=== PATIENT | male | born 1975 | race Hispanic/Latino ===

== ENCOUNTER 2019-08-02 08:02 | Emergency (ER) | payer BC, OTHER ==
--- OUTSIDE RECORDS SUMMARY | 2019-08-02 08:04 | XMS REPORT ---
:1975 Author Organization eClinicalWorks Care Team Providers Name Role Phone Joce Joseph Provider Role Unavailable Allergies, Adverse Reactions, Alerts Substance Reaction Event Type N.K.D.A. Info Not Available Non Drug Allergy Problems Problem Type Condition Code Onset Dates Condition Status Problem Other stressful life events Z63.79 Active affecting family and household Problem Major depressive disorder, single F32.2 Active episode, severe without psychotic features Problem Nonalcoholic steatohepatitis ([place]) K75.81 Active Problem Mixed hyperlipidemia E78.2 Active Problem Erectile dysfunction, unspecified N52.9 Active erectile dysfunction type Problem Rotator cuff syndrome of left M75.102 Active shoulder Problem Adult BMI 30.0-30.9 kg/sq m Z68.30 Active Problem Attention and concentration deficit R41.840 Active Problem Type 2 diabetes mellitus with other E11.29 Active diabetic kidney complication Problem Insomnia, unspecified type G47.00 Active Assessment Rotator cuff syndrome of left M75.102 Active shoulder Problem Diabetes mellitus type 2, E11.9 Active uncontrolled, without complications Problem GERD (gastroesophageal reflux K21.9 Active disease) Assessment Left shoulder pain, unspecified M25.512 Active chronicity Problem Obesity E66.9 Active Problem Hypertension I10 Active Medications Medication Code Code Instructions Start End Status Dosage System Date Date Jardiance [facility] 64767762050 10 MG Orally February 11Oct 07, Active 1 tablet Once a day 2018 2019 Lisinopril [facility] 49543242296 10 MG Orally Active 1 tablet Once a day Lipitor ND 69182287128 20 MG Orally Active 1 tablet Once a day Sildenafil ND 62765542447 100 MG Orally Jul 09, Aug 08, Active 1 tablet Citrate Once a day 2018 2018 as needed Trazodone HCl ND 69008771789 100 MG Orally Active 1 tablet Once a day at bedtime Jentadueto ND 52502796012 2.5mg by mouth February 11Oct 07, Active 1 tablet 2.5-1000mg twice a day 2018 2019 Results No Known Results Summary Purpose eClinicalWorks Submission
[2019-08-02] MEDS ORDERED: predniSONE 20 MG TAB ONE (08:51)
[2019-08-02] MEDS ORDERED: KETOROLAC 10 MG TAB PO ONE (09:00)
[2019-08-02] MEDS ORDERED: KETOROLAC 30 MG/ML INJ ONE (09:04)
--- NOTE | 2019-08-02 09:31 | RAD REPORT ---
EXAM DESCRIPTION: RAD - Shoulder Left 2 View - 08/02/2019 8:46 am CLINICAL HISTORY: PAIN COMPARISON: No comparisons FINDINGS: Mild AC joint degenerative changes are present. No fracture or dislocation. No aggressive marrow pattern.
--- NOTE | 2019-08-02 10:40 | ER ---
Nurse's Notes [facility] Name: José Miguel Fisher Age: 44 yrs Sex: Male : 1975 Arrival Date: 08/02/2019 Time: 08:07 Bed 6 Private MD: Joseph Hobson Diagnosis: Pain in left shoulder;Acromial Clavicular degenerative changes/pain Presentation: 08/02 08:25 Presenting complaint: Patient states: left shoulder pain X 1 week, worse over 2 days, iw worse at night. 08:26 Transition of care: patient was not received from another setting of care. Onset of iw symptoms was July 28, 2019. Risk Assessment: Do you want to hurt yourself or someone else? Patient reports no desire to harm self or others. Initial Sepsis Screen: Does the patient meet any 2 criteria? No. Patient's initial sepsis screen is negative. Does the patient have a suspected source of infection? No. Patient's initial sepsis screen is negative. Care prior to arrival: None. 08:26 Method Of Arrival: Ambulatory iw 08:26 Acuity: ANA LUISA 4 iw Historical: - Allergies: 08:29 No Known Allergies; iw - Home Meds: 08:29 lisinopril 10 mg Oral tab 1 tab once daily [Active]; atorvastatin oral oral once daily iw [Active]; - PMHx: 08:29 Diabetes - IDDM; Hypertension; Hyperlipidemia; iw - PSHx: 08:29 None; iw - Immunization history:: Adult Immunizations up to date. - Social history:: Smoking status: Patient/guardian denies using tobacco. - Ebola Screening: : Patient negative for fever greater than or equal to 101.5 degrees Fahrenheit, and additional compatible Ebola Virus Disease symptoms Patient denies exposure to infectious person Patient denies travel to an Ebola-affected area in the 21 days before illness onset No symptoms or risks identified at this time. Screenin:30 Abuse screen: Denies threats or abuse. Nutritional screening: No deficits noted. aa5 Tuberculosis screening: No symptoms or risk factors identified. Fall Risk None identified. Assessment: 08:30 General: Appears uncomfortable, Behavior is calm, cooperative. Pain: Complains of pain aa5 in left shoulder Pain does not radiate. Pain currently is 7 out of 10 on a pain scale. Quality of pain is described as sharp, Is continuous, Aggravated by increased activity. Neuro: Level of Consciousness is awake, alert, obeys commands, Oriented to person, place, time, situation. Cardiovascular: Patient's skin is warm and dry. Respiratory: Airway is patent Respiratory effort is even, unlabored, Respiratory pattern is regular, symmetrical. GI: No signs and/or symptoms were reported involving the gastrointestinal system. : No signs and/or symptoms were reported regarding the genitourinary system. EENT: No signs and/or symptoms were reported regarding the EENT system. Derm: Skin is pink, warm \T\ dry. Musculoskeletal: Reports pain in left shoulder. 09:04 Reassessment: Patient is alert, oriented x 3, equal unlabored respirations, skin aa5 warm/dry/pink. 10:50 Reassessment: Patient is alert, oriented x 3, equal unlabored respirations, skin aa5 warm/dry/pink. Patient states feeling better. Vital Signs: 08:30 BP 130 / 88; Pulse 100; Resp 16; Temp 98.2; Pulse Ox 100% on R/A; Pain 7/10; iw 09:04 BP 139 / 91; Pulse 98; Resp 18 S; Pulse Ox 97% on R/A; Pain 7/10; aa5 10:50 BP 130 / 76; Pulse 94; Resp 18 S; Pulse Ox 98% on R/A; aa5 ED Course: 08:07 Patient arrived in ED. mr 08:07 Joseph Hobson DO is Private Physician. mr 08:08 Thierno Fletcher MD is Attending Physician. kdr 08:15 Rebecca Villalobos, RN is Primary Nurse. aa5 08:28 Triage completed. iw 08:30 Arm band placed on. iw 08:30 Patient has correct armband on for positive identification. Placed in gown. Bed in low aa5 position. Call light in reach. Side rails up X 1. 08:46 Shoulder Left (2 View) XRAY In Process Unspecified. EDMS 10:38 Joseph Hobson DO is Referral Physician. kdr 10:50 No provider procedures requiring assistance completed. Patient did not have IV access aa5 during this emergency room visit. Administered Medications: 08:51 Drug: predniSONE 20 mg Route: PO; aa5 10:50 Follow up: Response: No adverse reaction aa5 08:58 Not Given (Physician Discretion): TORadol 10 mg PO once iw 09:04 Drug: TORadol - Ketorolac 15 mg Route: IM; Site: left deltoid; aa5 09:30 Follow up: Response: No adverse reaction aa5 Outcome: 10:39 Discharge ordered by . kdr 10:50 Discharged to home ambulatory. aa5 10:50 Condition: improved 10:50 Discharge instructions given to patient, Instructed on discharge instructions, follow up and referral plans. medication usage, Demonstrated understanding of instructions, follow-up care, medications, Prescriptions given X 2. 10:55 Patient left the ED. aa5 Signatures: Dispatcher [employer] EDMS Thierno Fletcher MD MD [facility] Shelby Greenwood mr Marilu Terrazas RN RN Rebecca Maxwell RN RN aa5 Corrections: (The following items were deleted from the chart) 08:30 08:30 BP 13 / ???; iw iw 08:30 08:30 BP 130 / 88; Pulse 100bpm; Resp 16bpm; Pulse Ox 100% RA; Temp 98.2F; Pain 7/10; iwiw
--- NOTE | 2019-08-02 10:40 | EDPHYS ---
Physician Documentation [facility] Name: José Miguel Fisher Age: 44 yrs Sex: Male : 1975 Arrival Date: 08/02/2019 Time: 08:07 Bed 6 Private MD: Joseph Hobson ED Physician Thierno Fletcher HPI: 08/02 08:38 This 44 yrs old Male presents to ER via Ambulatory with complaints of Shoulder kdr Pain. 08:38 The patient or guardian complains of pain, that is acute. left shoulder and left kdr clavicle - AC joint. Context: The problem was sustained at an unknown site, resulted from an unknown reason, The patient reports no decreased range of motion. The patient reports no obvious deformity. Onset: The symptoms/episode began/occurred suddenly, 1 week(s) ago, Worse the last two days. Modifying factors: the symptoms are alleviated by nothing. The symptoms are aggravated by movement, rotation of arm. Associated signs and symptoms: The patient has no apparent associated signs or symptoms. Severity of symptoms: At their worst the symptoms were mild, in the emergency department the symptoms are unchanged. Treatment prior to arrival includes: over the counter medications, aspirin, NSAIDS. The patient has not experienced similar symptoms in the past. The patient has not recently seen a physician. Historical: - Allergies: 08:29 No Known Allergies; iw - Home Meds: 08:29 lisinopril 10 mg Oral tab 1 tab once daily [Active]; atorvastatin oral oral once daily iw [Active]; - PMHx: 08:29 Diabetes - IDDM; Hypertension; Hyperlipidemia; iw - PSHx: 08:29 None; iw - Immunization history:: Adult Immunizations up to date. - Social history:: Smoking status: Patient/guardian denies using tobacco. - Ebola Screening: : Patient negative for fever greater than or equal to 101.5 degrees Fahrenheit, and additional compatible Ebola Virus Disease symptoms Patient denies exposure to infectious person Patient denies travel to an Ebola-affected area in the 21 days before illness onset No symptoms or risks identified at this time. ROS: 08:38 Constitutional: Negative for fever, chills, and weight loss, Eyes: Negative for injury, kdr pain, redness, and discharge, ENT: Negative for injury, pain, and discharge, Neck: Negative for injury, pain, and swelling, Cardiovascular: Negative for chest pain, palpitations, and edema, Respiratory: Negative for shortness of breath, cough, wheezing, and pleuritic chest pain, Back: Negative for injury and pain, : Negative for injury, bleeding, discharge, and swelling. 08:38 MS/extremity: Positive for pain, of the left arm - Left AC Joint. Exam: 08:38 Constitutional: This is a well developed, well nourished patient who is awake, alert, kdr and in no acute distress. Head/Face: Normocephalic, atraumatic. 08:38 Musculoskeletal/extremity: ROM: intact in all extremities, Circulation is intact in all extremities. Sensation intact. Compartment Syndrome exam of affected extremity: Joints: the left shoulder displays Vital Signs: 08:30 BP 130 / 88; Pulse 100; Resp 16; Temp 98.2; Pulse Ox 100% on R/A; Pain 7/10; iw 09:04 BP 139 / 91; Pulse 98; Resp 18 S; Pulse Ox 97% on R/A; Pain 7/10; aa5 10:50 BP 130 / 76; Pulse 94; Resp 18 S; Pulse Ox 98% on R/A; aa5 MDM: 08:38 Data reviewed: vital signs, nurses notes, radiologic studies. Counseling: I had a kdr detailed discussion with the patient and/or guardian regarding: the historical points, exam findings, and any diagnostic results supporting the discharge/admit diagnosis, radiology results, the need for outpatient follow up. 10:39 Patient medically screened. kdr 08/02 08:34 Order name: Shoulder Left (2 View) XRAY; Complete Time: 10:37 kdr Administered Medications: 08:51 Drug: predniSONE 20 mg Route: PO; aa5 10:50 Follow up: Response: No adverse reaction aa5 08:58 Not Given (Physician Discretion): TORadol 10 mg PO once iw 09:04 Drug: TORadol - Ketorolac 15 mg Route: IM; Site: left deltoid; aa5 09:30 Follow up: Response: No adverse reaction aa5 Disposition: 08/02/19 10:39 Discharged to Home. Impression: Pain in left shoulder, Acromial Clavicular degenerative changes/pain. - Condition is Stable. - Discharge Instructions: Joint Pain, Musculoskeletal Pain, Shoulder Pain. - Prescriptions for ketorolac 10 mg Oral tablet - take 1 tablet by ORAL route every 4-6 hours As needed not to exceed 40 mg in 24hrs; 12 tablet. Prednisone 20 mg Oral Tablet - take 1 tablet by ORAL route once daily for 5 days; 5 tablet. - Medication Reconciliation Form, Thank You Letter, Prescription Opioid Use, Work release form form. - Follow up: Joseph Hobson DO; When: 2 - 3 days; Reason: If symptoms return, Further diagnostic work-up, Recheck today's complaints, Continuance of care, Re-evaluation by your physician. - Problem is an ongoing problem. - Symptoms have improved. - Notes: While taking the prednisone, watch your sugar levels more frequently Signatures: Dispatcher [employer] EDMS Thierno Fletcher MD MD kdr Marilu Terrazas RN RN iw Rebecca Villalobos RN RN aa5 Corrections: (The following items were deleted from the chart) 10:55 10:39 08/02/2019 10:39 Discharged to Home. Impression: Pain in left shoulder; Acromial aa5 Clavicular degenerative changes/pain. Condition is Stable. Forms are Medication Reconciliation Form, Thank You Letter, Antibiotic Education, Prescription Opioid Use. Follow up: Joseph Hobson; When: 2 - 3 days; Reason: If symptoms return, Further diagnostic work-up, Recheck today's complaints, Continuance of care, Re-evaluation by your physician. Problem is an ongoing problem. Symptoms have improved. kdr
[2019-08-02 12:48] VITALS: TEMP 98.2
[2019-08-02 12:49] VITALS: BP 139/91; O2SAT 97
== END 2019-08-02 10:55 | disposition home or self-care (01) ==
LOC: ER 08:02
DX: M25.512 Pain in left shoulder (principal); I10 Essential (primary) hypertension; E11.9 Type 2 diabetes mellitus without complications; E78.5 Hyperlipidemia, unspecified
CPT/HCPCS: 73030; 96372; 99283; J7512

== ENCOUNTER 2020-01-22 05:58 | Day surgery (SDC) | payer OTHER ==
--- NOTE | 2020-01-16 08:48 | RAD REPORT ---
EXAM DESCRIPTION: RAD - Chest Pa And Lat (2 Views) - 01/16/2020 8:40 am CLINICAL HISTORY: preop, left shoulder surgery, COMPARISON: Portable August 2011 TECHNIQUE: Frontal and lateral views of the chest were obtained. FINDINGS: The lungs are clear. Heart size is normal and central vasculature is within normal limit s. No pleural effusion or pneumothorax seen. No acute bony finding noted. No aortic abnormality. IMPRESSION: No acute cardiopulmonary process. No suspicious change from comparison.
[2020-01-16 09:22] LABS: Absolute Lymphocytes (CBC) 0.6 K/uL (0.7-4.9); Basophils % 0.3 % (0-1.3); Hematocrit 46.3 % (39.6-49.0); Lymphocytes % 6.9 % (15.3-44.8); MPV 10.5 fL (7.6-11.3); RBC Red Blood Cell Count 4.94 M/uL (4.33-5.43)
[2020-01-16 09:56] LABS: Protime INR 1.04
[2020-01-16 10:03] LABS: BUN Blood Urea Nitrogen 23 mg/dL (7-18); Bicarbonate 24 mmol/L (21-32); Glucose Level 128 mg/dL (74-106); Potassium 4.1 mmol/L (3.5-5.1); Sodium Level 139 mmol/L (136-145)
--- NOTE | 2020-01-17 06:26 | EKG ---
Test Date: 2020-01-16 Test Time: 07:21:35 Bedspread Cutter Hand: LEO MEASUREMENT RESULTS: Intervals: Rate: 65 [place]: 138 QRSD: 78 QT: 388 QTc: 403 [place]: P: 57 [place]: 138 QRS: 64 T: 61 INTERPRETIVE STATEMENTS: Normal sinus rhythm Normal ECG Compared to ECG 09/22/2011 07:51:38 No significant changes Electronically Signed On 01-17-20 06:24:10 CDT by Dev Brar
[2020-01-22] MEDS ORDERED: NA CHLORIDE 0.9% 1,000 ML ONE (06:08)
[2020-01-22] MEDS ORDERED: CEFAZOLIN/SWI 1gm 1 GM/10 ML SYR ONE (06:08)
--- OUTSIDE RECORDS SUMMARY | 2020-01-22 06:34 | XMS REPORT ---
:1975 Author Organization eClinicalWorks Care Team Providers Name Role Phone HobsonJoseph Provider Role Unavailable Allergies, Adverse Reactions, Alerts Substance Reaction Event Type N.K.D.A. 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 Problem Insomnia, unspecified type G47.00 A ctive Problem Adult BMI 30.0-30.9 kg/sq m Z68.30 Active Problem Erectile dysfunction, unspecified N52.9 Active erectile dysfunction type Problem Type 2 diabetes mellitus with other E11.29 Active diabetic kidney complication Assessment Acute non-recurrent maxillary J01.00 Active sinusitis Assessment Upper respiratory tract infection, J06.9 Active unspecified type Problem GERD (gastroesophageal reflux K21.9 Active disease) Problem Obesity E66.9 Active Problem Hypertension I10 Active Problem Diabetes mellitus type 2, E11.9 Ac tive uncontrolled, without complications Problem Other stressful life events Z63.79 Active affecting family and household Medications Medication Code Code Instructions Start End Date Status Dosage System Date Augumet XR [facility] 99098466038 50mg/1,000mg Oct 17, Active 1 Ta blet Orally twice a 2019 day Jardiance [facility] 75250916068 10 MG Orally Active 1 tab let Once a day Trazodone HCl ND 24930371347 100 MG Orally Active 1 tablet Once a day at bedtime Lipitor ND 02973242832 20 MG Orally Active 1 table t Once a day Amoxicillin-Pot ND 09194950847 875-125 MG October Active 1 tablet Clavulanate Orally every 12 2019 hrs Lisinopril [facility] 67886531039 10 MG Orally Active 1 ta blet Once a day Results Name Result Date Reference Range Unit Abnormali ty Flag STREP A RAPID Summary Purpose eClinicalWorks Submission
--- OUTSIDE RECORDS SUMMARY | 2020-01-22 06:34 | XMS REPORT ---
:1975 Author Organization eClinicalWorks Care Team Providers Name Role Phone Joce Joseph Provider Role Unavailable Allergies, Adverse Reactions, Alerts Substance Reaction Event Type N.K.D.A. Info Not Available Non Drug Allergy Problems Problem Type Condition Code Onset Dates Condition Statu s Assessment Adult BMI 30.0-30.9 kg/sq m Z68.30 Active Assessment Insomnia, unspecified type G47.00 A ctive Assessment GERD (gastroesophageal reflux K21.9 Active disease) Problem Other stressful life events Z63.79 Active affecting family and household Assessment Mixed hyperlipidemia E78.2 Active Problem Nonalcoholic steatohepatitis ([place]) K75.81 Active Assessment Nonalcoholic steatohepatitis ([place]) K75.81 Active Problem Major depressive disorder, single F32.2 Active episode, severe without psychotic features Problem Adult BMI 30.0-30.9 kg/sq m Z68.30 Active Problem Attention and concentration deficit R41.840 Active Problem 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 Problem Rotator cuff syndrome of left M75.102 Active shoulder Assessment Proteinuria, unspecified R80.9 Act malathi Assessment Erectile dysfunction, unspecified N52.9 Active erectile dysfunction type Problem Acute stress reaction with F43.9 A ctive predominately emotional disturbance Assessment Hypertension I10 Active Problem Type 2 diabetes mellitus with other E11.29 Active diabetic kidney complication Problem Insomnia, unspecified type G47.00 A ctive Problem Mixed hyperlipidemia E78.2 Active Problem Erectile dysfunction, unspecified N52.9 Active erectile dysfunction type Assessment Major depressive disorder, single F32.2 Active episode, severe without psychotic features Assessment Type 2 diabetes mellitus with other E11.29 Active diabetic kidney complication Assessment Acute stress reaction with F43.9 A ctive predominately emotional disturbance Problem Obesity E66.9 Active Problem Hypertension I10 Active Problem Diabetes mellitus type 2, E11.9 Ac tive uncontrolled, without complications Problem GERD (gastroesophageal reflux K21.9 Active disease) Medications Medication Code Code Instructions Start End Status Dosage System Date Date Lisinopril [facility] 05647862687 10 MG Orally Active 1 ta blet Once a day Janumet XR [facility] 07090419338 50mg/1,000mg Oct 17, Active 1 Ta blet Orally twice a 2019 Lipitor [facility] 29346176250 20 MG Orally Active 1 table t Once a day Jentadueto XR [facility] 61874686237 2.5-1000 MG Active 2 tablets Orally Once a with a day meal Trazodone HCl [facility] 59180473311 100 MG Orally Active 1 tablet Once a day at bedtime Jardiance [facility] 41715895496 10 MG Orally Active 1 tab let Once a day Results No Known Results Summary Purpose eClinicalWorks Submission
--- OUTSIDE RECORDS SUMMARY | 2020-01-22 06:34 | XMS REPORT ---
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 Problem Rotator cuff syndrome of left M75.102 Active shoulder Problem Acute stress reaction with F43.9 A ctive predominately emotional disturbance Problem Type 2 diabetes mellitus with other E11.29 Active diabetic kidney complication Problem Insomnia, unspecified type G47.00 A ctive Problem Mixed hyperlipidemia E78.2 Active Problem Erectile dysfunction, unspecified N52.9 Active erectile dysfunction type Problem Obesity E66.9 Active Problem Hypertension I10 Active Problem Diabetes mellitus type 2, E11.9 Ac tive uncontrolled, without complications Problem Other stressful life events Z63.79 Active affecting family and household Problem GERD (gastroesophageal reflux K21.9 Active disease) Problem Nonalcoholic steatohepatitis ([place]) K75.81 Active Medications Medication Code System Code Instructions Start Date End Date Status Dosage Lexapro [facility] 01232678440 20 MG Orally Once December 01, Active 1 tablet a day 2019 Results No Known Results Summary Purpose eClinicalWorks Submission
--- OUTSIDE RECORDS SUMMARY | 2020-01-22 06:34 | XMS REPORT ---
:1975 Author Organization [facility] t Address [address] [place] [address] Care Team Providers Name Role Phone Unavailable Unavailable Unavailable Problems Condition Condition Condition Status Onset Resolution Last Treating Co mments Source Name Details Category Date Date Treatment Clinician Date Other Other Problem Active [facility] stressful stressful Luke s - life life Memoria events events l affecting affecting Outp ati family and family and en t household household Clin ics Major Major Problem Active [facility] depressive depressive Juani kes - disorder, disorder, Harrison nik single single l episode, episode, Outpat i severe severe ent without without Clinics psychotic psychotic features features Nonalcohol Nonalcohol Problem Active [facility] - steatohepa steatohepa Me moria titis titis l (TOWNSEND) (TOWNSEND) Outpati ent Clinics Mixed Mixed Problem Active [facility] hyperlipid hyperlipid Juani kes - emia emia Memoria l Outpati ent Clinics Erectile Erectile Problem Active [facility] dysfunctio dysfunctio [place] kes - n, n, Memoria unspecifie unspecifie l d erectile d erectile Ou tpati dysfunctio dysfunctio en t n type n type Clinics Rotator Rotator Problem Active [facility] cuff cuff [facility] - syndrome syndrome Memori a of left of left l shoulder shoulder Outpat i ent Clinics Adult BMI Adult BMI Problem Active [facility] 30.0-30.9 30.0-30.9 Luke s - kg/sq m kg/sq m Memoria l Outpati ent Clinics Attention Attention Problem Active [facility] and and [facility] - concentrat concentrat Me moria ion ion l deficit deficit Outpati ent Clinics Type 2 Type [address] [facility] diabetes diabetes [facility] - mellitus mellitus Memori a with other with other l diabetic diabetic Outpat i kidney kidney ent complicati complicati Cl inics on on Insomnia, Insomnia, Problem Active [facility] unspecifie unspecifie Juani kes - d type d type [facility]oria l [facility] Diabetes Diabetes Problem Active [facility] t mellitus mellitus [facility] - type 2, type 2, Memoria uncontroll uncontroll l ed, ed, Outpati without without ent complicati complicati Cl inics ons ons GERD GERD Problem Active [facility] (gastroeso (gastroeso Juani kes - phageal phageal Memoria reflux reflux l disease) disease) Outpat i ent Clinics Obesity Obesity Problem Active [facility] Hypertensi Hypertensi Problem Active [facility] Arthrosis Arthrosis Diagnosis Active [facility] of left of left [facility] - acromiocla acromiocla Me moria vicular vicular l joint joint [facility]ics Acute Acute Problem Active [facility] stress stress [facility] - reaction reaction Memori a with with l predominat predominat Ou tpati joe joe ent emotional emotional Clin ics disturbanc disturbanc e e Bicipital Bicipital Diagnosis Active [facility] tendinitis tendinitis Juani kes - of left of left Memoria shoulder shoulder l [facility] Pain, Pain, Diagnosis Active [facility] joint, joint, [facility] - shoulder, shoulder, Harrison nik left left l [facility] Allergies, Adverse Reactions, Alerts This patient has no known allergies or adverse reactions. Medications Ordered Filled Start Stop Current Ordering Indication Dosage Frequency Signature Comments Components Source Medication Medication Date Date Medication? Clinician (SIG) Name Name Janumet XR Janumet XR 0 2019- No Mauro [address] [facility] 2-20 05-20 Taylor [facility] - 00:00: 00:00 [facility]oria 00 :00 [facility] Trazodone Trazodone Yes Mauro [address] [facility] HCl HCl Taylor at bedtime [facility] Yes Mauro [address] [address] XR XR Taylor with a [facility] - meal [facility] l [facility] Jardiance Jardiance Yes Mauro [address] [facility] Lexapro Lexapro Yes Mauro [address] [facility] Meloxicam Meloxicam Yes Mauro not [facility] Lisinopril Lisinopril Yes Mauro 1 tablet [facility] Lipitor Lipitor Yes Mauro 1 tablet [facility] Procedures This patient has no known procedures. Encounters Start End Encounter Admission Attending Care Care Encounter Source Date/Time Date/Time Type Type Clinicians Facility Department ID 2020-01-13 2020-01-13 [facility] [id number] [facility] 09:17:00 09:17:00 t [facility] 2020-01-08 2020-01-08 [facility] [id number] [address] 16:47:00 16:47:00 t [employer] [facility] 2020-01-08 2020-01-08 [facility] [id number] [facility] 16:30:00 16:30:00 t [employer] [facility] 2020-01-06 2020-01-06 [facility] [id number] [address] 13:31:00 13:31:00 t [facility] 2020-01-06 2020-01-06 [facility] [id number] 09:00:00 09:00:00 t [facility] 2019-12-30 2019-12-30 [facility] [id number] [facility] [address] 10:30:00 10:30:00 t [facility] 2019-12-27 2019-12-27 [facility] [id number] [address] 09:32:00 09:32:00 t [facility] 2019-12-23 2019-12-23 [facility] [id number] 10:19:00 10:19:00 t [facility] ent Clinics 2019-12-04 2019-12-04 [facility] [id number] [address] 14:00:00 14:00:00 t [facility] ent Clinics 2019-12-02 2019-12-02 [facility] [id number] 09:00:00 09:00:00 t [employer] [facility] Medicine Outpati ent Clinics 2019-11-27 2019-11-27 [facility] [id number] [address] 16[facility]30:00 16:30:00 t [employer] [facility] Medicine Outpati ent Clinics 2019-11-25 2019-11-25 [facility] [id number] [address] 16:07:00 16:07:00 t Donnelly [employer] [facility] Medicine Outpati ent Clinics 2019-11-08 2019-11-08 [facility] [id number] [address] 10:45:00 10:45:00 t [employer]ly [employer] [facility] Medicine Medicine Outpati ent Clinics 2019-10-17 2019-10-17 [facility] [id number] [address] 09:18:00 09:18:00 t [employer]ly [employer] [facility] Medicine Outpati ent Clinics 2019-10-10 2019-10-10 [facility] [id number] 15:50:00 15:50:00 t [employer]ly [employer] [facility] Medicine Outpati ent Clinics 2019-10-10 2019-10-10 [facility] [id number] 15:30:00 15:30:00 t [employer]nelly [employer] [facility] Medicine Outpati ent Clinics 2019-09-26 2019-09-26 [facility] [id number] 15:15:00 15:15:00 t [facility] ent Clinics 2019-08-15 2019-08-15 Outpatient Tia [facility]ovar [id number] 15:00:00 15:00:00 t [facility] ent Clinics 2019-08-01 2019-08-01 Outpatient Tia Tovar [id number] 15:15:00 15:15:00 t [employer] [place] [employer] [facility] ent Clinics Results This patient has no known results.
--- OUTSIDE RECORDS SUMMARY | 2020-01-22 06:34 | XMS REPORT ---
:1975 Author Organization [employer] Care Team Providers Name Role Phone Mauro Taylor Provider Role Unavailable Allergies, Adverse Reactions, Alerts Substance Reaction Event Type N.K.D.A. 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 Assessment Tear of left rotator cuff, M75.102 A ctive unspecified tear extent, unspecified whether traumatic Problem Tear of left rotator cuff, M75.102 A ctive unspecified tear extent, unspecified whether traumatic Problem Erectile dysfunction, unspecified N52.9 Active erectile dysfunction type Problem Type 2 diabetes mellitus with other E11.29 Active diabetic kidney complication Problem Rotator cuff syndrome of left M75.102 Active shoulder Problem Mixed hyperlipidemia E78.2 Active Problem Diabetes mellitus type 2, E11.9 Ac tive uncontrolled, without complications Assessment 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 Assessment Pain, joint, shoulder, left M25.512 Active Problem Hypertension I10 Active Problem Other stressful life events Z63.79 Active affecting family and household Problem GERD (gastroesophageal reflux K21.9 Active disease) Problem Nonalcoholic steatohepatitis ([place]END) K75.81 Active Problem Obesity E66.9 Active Problem Major depressive disorder, single F32.2 Active episode, severe without psychotic features Medications Medication Code Code Instructions Start End Status Dosage System Date Date Trazodone HCl ND 87756388689 100 MG Orally Active 1 tablet Once a day at bedtime Jentadueto XR ND 89207176561 2.5-1000 MG Active 2 tablets Orally Once a with a day meal Meloxicam ND 88441794635 7.5 MG Orally December 03, January 02, Active 1 tablet Once a day [address] [facility] 21726277437 50mg/1,000mg Oct 17, Active 1 Ta blet Orally twice a 2019 day Lisinopril ND 09131368373 10 MG Orally Active 1 ta blet Once a day Lipitor ND 56357592430 20 MG Orally Active 1 table t Once a day Jardiance [facility] 68645819315 10 MG Orally Active 1 tab let Once a day Lexapro [facility] 58278610983 20 MG Orally December 01, Active 1 tab let Once a day 2019 Results No Known Results Summary Purpose [employer]ClinicalWorks Submission
--- OUTSIDE RECORDS SUMMARY | 2020-01-22 06:34 | XMS REPORT ---
[...] Problem Nonalcoholic steatohepatitis (TOWNSEND) K75.81 Active Medications No Known Medications Results No Known Results Summary Purpose [employer]ClinicalWorks Submission
--- OUTSIDE RECORDS SUMMARY | 2020-01-22 06:35 | XMS REPORT ---
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 Problem Tear of left rotator cuff, M75.102 A ctive unspecified tear extent, unspecified whether traumatic Problem Erectile dysfunction, unspecified N52.9 Active erectile dysfunction type Problem Type 2 diabetes mellitus with other E11.29 Active diabetic kidney complication Problem Rotator cuff syndrome of left M75.102 Active shoulder Problem Mixed hyperlipidemia E78.2 Active Problem Diabetes mellitus type 2, E11.9 Ac tive uncontrolled, without complications Problem Hypertension I10 Active Problem Other stressful life events Z63.79 Active affecting family and household Problem GERD (gastroesophageal reflux K21.9 Active disease) Problem Nonalcoholic steatohepatitis ([place]END) K75.81 Active Problem Obesity E66.9 Active Problem Major depressive disorder, single F32.2 Active episode, severe without psychotic features Medications No Known Medications Results No Known Results Summary Purpose [employer]ClinicalWorks Submission
--- OUTSIDE RECORDS SUMMARY | 2020-01-22 06:35 | XMS REPORT ---
[...] E11.9 Ac tive uncontrolled, without complications Assessment Tear of left rotator cuff, M75.102 A ctive unspecified tear extent, unspecified whether traumatic Problem Hypertension I10 Active Problem Other stressful life events Z63.79 Active affecting family and household Problem GERD (gastroesophageal reflux K21.9 Active disease) Problem Nonalcoholic steatohepatitis ([place]END) K75.81 Active Problem Obesity E66.9 Active Problem Major depressive disorder, single F32.2 Active episode, severe without psychotic features Medications No Known Medications Results No Known Results Summary Purpose eClinicalWorks Submission
--- OUTSIDE RECORDS SUMMARY | 2020-01-22 06:36 | XMS REPORT ---
:1975 Author Organization [employer] Care Team Providers Name Role Phone Taylor Mauro Provider Role Unavailable Allergies, Adverse Reactions, Alerts Substance Reaction Event Type N.K.D.A. 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 Assessment Bicipital tendinitis of left M75.22 Active shoulder Problem Tear of left rotator cuff, M75.102 [...] End Status Dosage System Date Date Lisinopril ND 03490086538 10 MG Orally Active 1 ta blet Once a day Lipitor ND 66291968380 20 MG Orally Active 1 table t Once a day Jentadueto XR [facility] 97765414175 2.5-1000 MG Active 2 tablets Orally Once a with a day meal Trazodone HCl [facility] 95022849171 100 MG Orally Active 1 tablet Once a day at bedtime Jardiance [facility] 46607458547 10 MG Orally Active 1 tab let Once a day Janumet XR [facility] 07574502308 50mg/1,000mg Oct 17, Active 1 Ta blet Orally twice a 2019 Meloxicam [facility] [address]-12 Active not defined Lexapro [facility] 09417494355 20 MG Orally Active 1 table t Once a day Results No Known Results Summary Purpose eClinicalWorks Submission
--- OUTSIDE RECORDS SUMMARY | 2020-01-22 06:36 | XMS REPORT ---
[...] E11.9 Ac tive uncontrolled, without complications Assessment COVID-19 U07.1 Active Problem Hypertension I10 Active Problem Other [...]
--- OUTSIDE RECORDS SUMMARY | 2020-01-22 06:36 | XMS REPORT ---
:1975 Author Organization [employer] Care Team Providers Name Role Phone Joce Joseph Provider Role Unavailable Allergies, Adverse Reactions, Alerts Substance Reaction Event Type N.K.D.A. Info Not Available Non Drug Allergy Problems Problem Type Condition Code Onset Dates Condition Statu s Assessment Insomnia, unspecified type G47.00 A ctive Assessment Adult BMI 30.0-30.9 kg/sq m Z68.30 Active Assessment Mixed hyperlipidemia E78.2 Active Assessment GERD (gastroesophageal reflux K21.9 Active disease) Assessment Nonalcoholic steatohepatitis ([place]) K75.81 Active Assessment Hypertension I10 Active Assessment Erectile dysfunction, unspecified N52.9 Active erectile dysfunction type Assessment Proteinuria, unspecified R80.9 Act malathi Assessment Bicipital tendinitis of left M75.22 Active shoulder Problem Nonalcoholic steatohepatitis ([place]) K75.81 Active Assessment Acute stress reaction with F43.9 A ctive predominately emotional disturbance Problem Major depressive disorder, single F32.2 Active episode, severe without psychotic features Assessment Pain, joint, shoulder, left M25.512 Active Problem Attention and concentration deficit R41.840 Active Problem Insomnia, unspecified type G47.00 A ctive Problem Adult BMI 30.0-30.9 kg/sq m Z68.30 Active Problem Acute stress reaction with F43.9 A ctive predominately emotional disturbance Problem 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 Assessment Tear of left rotator cuff, M75.102 A ctive unspecified tear extent, unspecified whether traumatic Assessment Type 2 diabetes mellitus with other E11.29 Active diabetic kidney complication Problem Tear of left rotator cuff, M75.102 A ctive unspecified tear extent, unspecified whether traumatic Assessment 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 Problem Erectile dysfunction, unspecified N52.9 Active erectile dysfunction type Problem Type 2 diabetes mellitus with other E11.29 Active diabetic kidney complication Problem Rotator cuff syndrome of left M75.102 Active shoulder Problem Mixed hyperlipidemia E78.2 Active Problem Diabetes mellitus type 2, E11.9 Ac tive uncontrolled, without complications Assessment Preop examination Z01.818 Active Assessment Major depressive disorder, single F32.2 Active episode, severe without psychotic features Problem Hypertension I10 Active Problem Other stressful life events Z63.79 Active affecting family and household Problem GERD (gastroesophageal reflux K21.9 Active disease) Problem Obesity E66.9 Active Medications Medication Code Code Instructions Start End Status Dosage System Date Date Lisinopril [facility] 92858097825 10 MG Orally Active 1 ta blet Once a day Lipitor [facility] 93078545318 20 MG Orally Active 1 table t Once a day Lexapro [facility] 91903232855 20 MG Orally Active 1 table t Once a day Janumet XR [facility] 23574103924 50mg/1,000mg Oct 17, January 14, Active 1 Ta blet Orally twice a [address] [facility] 56244174103 2.5-1000 MG Inactive 2 tablets Orally Once a with a day meal Jardiance [facility] 54460417443 10 MG Orally Active 1 tab let Once a day Trazodone HCl [facility] 26652531310 100 MG Orally Active 1 tablet Once a day at bedtime Meloxicam [facility] [address]-13 Active not defined Results No Known Results Summary Purpose eClinicalWorks Submission
[2020-01-22] MEDS ORDERED: dexAMETHasone 10 MG/ML VIAL ONE (06:41)
[2020-01-22] MEDS ORDERED: NS 0.9% VIAL 10 ML ONE (06:41)
[2020-01-22] MEDS ORDERED: LIDOCAINE 2% MPF 5 ML VIAL ONE ×2 (06:41→06:45)
[2020-01-22] MEDS ORDERED: ROPLVACAINE HCL 40 ML ONE (06:42)
[2020-01-22] MEDS ORDERED: propofoL 200 MG/20 ML VIAL IV ONE (06:44)
[2020-01-22] MEDS ORDERED: FENTANYL CITR 100 MCG/2 ML ONE (06:44)
[2020-01-22] MEDS ORDERED: MIDAZOLAM HCL 2 MG/2 ML INJ ONE (06:45)
[2020-01-22] MEDS ORDERED: ROCURONIUM 50 MG/5 ML VIAL IV ONE (06:45)
[2020-01-22] MEDS ORDERED: EPINEPHRINE/PF 1 MG/ML AMP ONE (07:13)
[2020-01-22] MEDS ORDERED: EPHEDRINE SULF 50 MG/ML VIAL ONE (07:59)
[2020-01-22] MEDS ORDERED: Ringers Lactate 1,000 ML IV ONE (08:24)
[2020-01-22] MEDS ORDERED: Phenylephrine HCl 10 MG/ML 1 ML VIAL ONE (08:29)
[2020-01-22] MEDS ORDERED: KETOROLAC 30 MG/ML INJ ONE (09:25)
--- NOTE | 2020-01-22 09:35 | P.BOP ---
Preoperative diagnosis: left shoulder rotator cuff tear, impingment syndrome, AC arthrosis Postoperative diagnosis: same, left shoulder SLAP tear Primary procedure: left shoulder arthroscopic rotator cuff repair with SLAP debridement Secondary procedure: left shoulder arthroscopic subacromial decompression Other procedure(s): left shoulder arthroscopic distal clavicle excision Estimated blood loss: <10 cc Specimen: none Findings: see dictation Anesthesia: General Complications: None Implants: 1- 4.75 mm Arthrex swivelock Fluids & blood products: per anesthesia record Transferred to: Recovery Room Condition: Good
[2020-01-22] MEDS ORDERED: ONDANSETRON 4 MG/2 ML VIAL ONE (10:04)
--- NOTE | 2020-01-22 10:31 | RAD REPORT ---
EXAM DESCRIPTION: RAD - Shoulder 1 View - 01/22/2020 10:22 am CLINICAL HISTORY: s/p L shoulder RCR, SAD, DCE Postop left shoulder COMPARISON: Shoulder Left Wo Cont dated 12/30/2019 FINDINGS: Mild arthritic changes are present. No fracture or dislocation.
[2020-01-22 10:45] VITALS: BP 115/58; TEMP 97.2; O2SAT 97
[2020-01-22] MEDS ORDERED: HYDROCODONE/APAP 7.5/325 MG TAB ONE (11:10)
--- NOTE | 2020-01-23 14:51 | OP ---
Date of Procedure: 01/22/2020 Surgeon: Mauro Taylor MD Preoperative Diagnoses: 1. Left shoulder rotator cuff tear. 2. Left shoulder impingement syndrome and left shoulder acromioclavicular joint arthrosis. Postoperative Diagnoses: 1. Left shoulder rotator cuff tear. 2. Left shoulder impingement syndrome and left shoulder acromioclavicular joint arthrosis. 3. Left shoulder adhesive capsulitis 4. Left shoulder SLAP tear Procedures: 1. Manipulation under anesthesia. 2. Left shoulder arthroscopic rotator cuff repair. 3. Left shoulder arthroscopic superior labral anterior to posterior debridement with anterior inferior capsular release. 4. Left shoulder arthroscopic subacromial decompression 5. Left shoulder arthroscopic distal clavicle excision. Anesthesia: General endotracheal. Fluids: Per Anesthesia record. Estimated Blood Loss: Less than 10 cc. Complications: None. Implants: 1 - 4.75 Arthrex Swivelock. Indication For Procedure: Martinez is a 44 year old male presenting with left shoulder rotator cuff tear, impingement syndrome, and AC joint arthrosis. I discussed with the patient at length risks and benefits associated with operative and nonoperative treatment, failed conservative treatment measures and he elected to proceed with operative treatment. Description Of Procedure: After informed consent was obtained, the patient was identified in the preoperative holding area and the left upper extremity was marked. An interscalene block to his left upper extremity was performed by Anesthesia. He was then taken back to the operating room, transferred to the operating table in supine fashion, placed under general endotracheal anesthesia. He was then placed in the beach chair position with his extremities well padded. Left upper extremity was then examined. The patient was noted to have approximately 110 degrees of forward flexion. Manipulation under anesthesia was performed. The arm was brought into forward flexion, stabilizing the scapula and there were audible pops within the shoulder. The range of motion improved to 130 degrees. The left shoulder was then prepped and draped in the usual sterile fashion. Time-out was initiated and correct patient, procedure were confirmed and identified. The patient had received his preoperative prophylactic antibiotics. In a posterior portal position, a spinal needle was introduced into the glenohumeral joint and shoulder joint was injected with 30 cc of normal saline to distend the capsule. A posterior portal was created and the arthroscope was brought into the joint via the posterior portal position. The anterior portal and cannula were placed under direct visualization. Diagnostic arthroscopy was performed. The patient was noted to have hyperemia at the base of the biceps tendon. There was no significant fraying of the biceps tendon both intraarticularly and extraarticularly. There was a type 1 SLAP lesion noted, but no instability in the labrum and it was stable to probe. An arthroscopic shaver was brought in from the anterior portal and the type 1 SLAP tear was debrided. Anterior to posterior labrum was stable to probe. No loose bodies were noted in the axillary pouch. There was hyperemia and inflammatory tissue about the anterior and inferior capsule consistent with adhesive capsulitis. Using a radiofrequency ablator, anterior and anteroinferior capsular release was performed and there was noted to be increase in space and motion of the shoulder. Undersurface of the supraspinatus was noted to have significant fraying and tearing. It was marked with a PDS suture via the lateral portal. Lateral portal was created. Arthroscope was brought into the subacromial space. Subacromial bursectomy was performed. The noted area marked by the PDS suture was identified on the bursal surface and that area of the rotator cuff was debrided. There was noted to be a small full-thickness tear of the anterior aspect of the supraspinatus. The tear was relatively small and it was fixed by placing a suture tape through the tear in an inverted horizontal mattress position using a FastPass Scorpion Suture Passer. The tear was reduced to the greater tuberosity using a 4.75 mm SwiveLock. There was overall good reduction of the rotator cuff tear. Undersurface of the acromion was then debrided using a radiofrequency ablator and acromioplasty was performed using an arthroscopic du. The distal clavicle was then identified. Soft tissue was removed in the undersurface of the distal flap using radiofrequency ablator and an arthroscopic du was brought in via the anterior portal. Distal clavicle excision of at least 6 mm was performed. The arthroscopic instruments were then removed without complications. The wound was then irrigated thoroughly with normal saline. Subcutaneous tissue was approximated using a 2-0 Vicryl. Skin and portals were approximated using a 3-0 Monocryl. Sterile dressings were applied. The patient was awakened and transferred to PACU in stable condition. Postoperative Plan: He will follow up in my clinic in 1 week for wound check. He will get physical therapy in 2 weeks postop for small rotator cuff repair protocol. CV/MODL Voice ID: [id number] Report ID: [id number]
== END 2020-01-22 11:15 | disposition home or self-care (01) ==
LOC: OR 05:58
PROVIDERS: ATTEND Orthopaedic Surgery Sports Medicine
PROC: 0RHK44Z Insertion of Internal Fixation Device into Left Shoulder Joint, Percutaneous Endoscopic Approach (ICD-10-PCS; 2020-01-22)
PROC: 0RNK4ZZ Release Left Shoulder Joint, Percutaneous Endoscopic Approach (ICD-10-PCS; 2020-01-22)
PROC: 0RBK4ZZ Excision of Left Shoulder Joint, Percutaneous Endoscopic Approach (ICD-10-PCS; 2020-01-22)
PROC: 0PBB4ZZ Excision of Left Clavicle, Percutaneous Endoscopic Approach (ICD-10-PCS; 2020-01-22)
PROC: 0RNKXZZ Release Left Shoulder Joint, External Approach (ICD-10-PCS; 2020-01-22)
PROC: 0LQ24ZZ Repair Left Shoulder Tendon, Percutaneous Endoscopic Approach (ICD-10-PCS; principal; 2020-01-22 07:30)
DX: M75.102 Unspecified rotator cuff tear or rupture of left shoulder, not specified as traumatic (principal); S43.432A Superior glenoid labrum lesion of left shoulder, initial encounter; M75.02 Adhesive capsulitis of left shoulder; M75.42 Impingement syndrome of left shoulder; M19.012 Primary osteoarthritis, left shoulder; Z11.59 Encounter for screening for other viral diseases; I10 Essential (primary) hypertension; E11.9 Type 2 diabetes mellitus without complications; K21.9 Gastro-esophageal reflux disease without esophagitis; K75.81 Nonalcoholic steatohepatitis (NASH); E66.9 Obesity, unspecified; Z68.29 Body mass index [BMI] 29.0-29.9, adult; Z83.3 Family history of diabetes mellitus; Z82.49 Family history of ischemic heart disease and other diseases of the circulatory system
CPT/HCPCS: 29827; 29826; 29822; 29824; 23700; 93005; 85025; 80048; 36415; 85610; 82947 ×2; 85730; 71046; 73020; J2704; J0171; J2370; J2250; J3010; J1100; J2795; J0690; J7120; J7030; J2405

== ENCOUNTER 2021-09-11 00:13 | Emergency (ER) | payer BC, OTHER, SELFPAY ==
--- OUTSIDE RECORDS SUMMARY | 2021-09-11 00:18 | XMS REPORT | Continuity of Care Document ---
:1975 Author Organization [facility] t Address [address] [place] [address] Care Team Providers Name Role Phone Unavailable Unavailable Unavailable Problems This patient has no known problems. Allergies, Adverse Reactions, Alerts This patient has no known allergies or adverse reactions. Medications Ordered Filled Start Stop Current Ordering Indication Dosage Frequency Signature Comments Components Source Medication Medication Date Date Medication? Clinician (SIG) Name Name Jardiance Jardiance Yes Mauro [address] [facility] Lexapro Lex[facility]ro Yes Mauro [address] [facility] Meloxicam Meloxicam Yes [facility] not [facility] Lipitor Lipitor Yes Mauro [address] [facility] Trazodone Trazodone Yes Mauro TAKE [address] [facility] HCl HCl [facility]T BY [facility] EVERY[facility] AT B[facility] Lisinopril Lisinopril Yes Mauro [address] [facility] Hydrocodone Hydrocodone Yes Mauro not [facility] -Acetaminop -Acetaminop [facility] Escitalopra Escitalopra Yes Mauro TAKE [address] [facility] m Oxalate m Oxalate [facility] TABLET [facility] Procedures This patient has no known procedures. Encounters Start End Encounter Admission Attending Care Care Encounter Source Date/Time Date/Time Type Type Clinicians Facility Department ID 2021-08-19 2021-08-19 ambulatory [facility] [id number] [facility] 2021-05-28 2021-05-28 Outpatient [facility] [id number] [facility] 2021-02-24 2021-02-24 Outpatient [facility] [id number] [facility] 2020-12-17 2020-12-17 Outpatient [facility] [id number] [facility] 2020-12-15 2020-12-15 Outpatient [facility] [id number] [facility] 2020-03-12 2020-03-12 [facility] [id number] [facility] 13[facility]00 [facility] 2020-02-11 2020-02-11 [facility] [id number] [facility] 13:00[facility]00 13:00:00 [facility] 2020-01-28 2020-01-28 [facility] [id number] [facility] 11:53:00 11:53:00 [facility] 2020-01-27 2020-01-27 [facility] [id number] [facility] 15:30:00 15:30:00 [facility] 2020-01-13 2020-01-13 [facility] [id number] [facility] 09[facility]17:00 09:17:00 [facility] 2020-01-08 2020-01-08 [facility] [id number] [facility] 16:47:00 16:47:00 [facility] [place] [facility] 2020-01-08 2020-01-08 [facility] [id number] [facility] 16:30:00 16:30:00 [facility] [place] [facility] 2020-01-06 2020-01-06 [facility] [id number] [facility] 13:31:00 13:31:00 [facility] 2020-01-06 2020-01-06 [facility] [id number] [facility] 09:00:00 09:00:00 t [facility] 2019-12-30 2019-12-30 [facility] [id number] [facility] 10:30:00 10:30:00 [facility] 2019-12-27 2019-12-27 [facility] [id number] 09:32:00 09:32:00 [facility] 2019-12-23 2019-12-23 [facility] [id number] 10:19:00 10:19:00 t [facility] 2019-12-04 2019-12-04 [facility] [id number] [facility] 14[facility]00:00 14:00:00 t [facility] 2019-12-02 2019-12-02 [facility] [id number] [facility] 09:00:00 09:00:00 [facility] [place] [facility] Clin[facility] 2019-11-27 2019-11-27 [facility] [id number] [facility] 16[facility]30:00 16:30:00 t [place] [facility] Clin[facility] 2019-11-25 2019-11-25 [facility] [id number] [facility] 16:07:00 16:07:00 t [place] [facility] Clin[facility] 2019-11-08 2019-11-08 [facility] [id number] [facility] 10:45:00 10:45:00 [facility] [place] [facility] Clin[facility] 2019-10-17 2019-10-17 [facility] [id number] [facility] 09:18:00 09:18:00 [facility] [place] [facility] Clin[facility] 2019-10-10 2019-10-10 [facility] [id number] [facility] 15:50:00 15:50:00 [facility] [place] [facility] Clin[facility] 2019-10-10 2019-10-10 [facility] [id number] 15:30:00 15:30:00 [facility] [place] [facility] Clinics 2019-09-26 2019-09-26 [facility] [id number] [address] 15:15:00 15:15:00 [facility] 2019-08-15 2019-08-15 [facility] [id number] 15:00:00 15:00:00 t [facility] 2019-08-01 2019-08-01 [facility] [id number] [facility] 15:15:00 15:15:00 [facility] [place] [facility] ent Clinics Results This patient has no known results.
[2021-09-11] MEDS ORDERED: ACETAMINOPHEN 500 MG TAB ONE (02:02)
--- NOTE | 2021-09-11 02:13 | ER ---
Nurse's Notes [facility] Name: Martinez Fisher Jr Age: 46 yrs Sex: Male : 1975 Arrival Date: 09/11/2021 Time: 00:17 Bed 8 Private MD: Diagnosis: Fall on same level, unspecified;Concussion without loss of consciousness;Contusion of unspecified part of head Presentation: 09/11 00:41 Chief complaint: Patient states: pt states he was sleep walking at home and fell and lg3 hit head. right sided knot on forehead. Coronavirus screen: Vaccine status: Patient reports receiving the 2nd dose of the covid vaccine. [id number] Client denies travel out of the [place] in the last 14 days. At this time, the client does not indicate any symptoms associated with coronavirus-19. Ebola Screen: No symptoms or risks identified at this time. Initial Sepsis Screen: Does the patient meet any 2 criteria? No. Patient's initial sepsis screen is negative. Does the patient have a suspected source of infection? No. Patient's initial sepsis screen is negative. Risk Assessment: Do you want to hurt yourself or someone else? Patient reports no desire to harm self or others. Onset of symptoms was September 10, 2021 at 23:00. 00:41 Method Of Arrival: Wheelchair lg3 00:41 Acuity: ANA LUISA 2 lg3 02:27 Care prior to arrival: None. Mechanism of Injury: Fall. lg3 Triage Assessment: 00:46 General: Appears in no apparent distress. comfortable, Behavior is calm, cooperative, lg3 flat. Pain: Complains of pain in forehead and right presybeterian Pain currently is 8 out of 10 on a pain scale. EENT: No deficits noted. No signs and/or symptoms were reported regarding the EENT system. Neuro: Level of Consciousness is awake, alert, obeys commands, confused, Oriented to person, place, time, situation, Bulldozer Operator are equal bilaterally Moves all extremities. Speech with expressive aphasia noted. Cardiovascular: Capillary refill < 3 seconds JVD is absent Patient's skin is warm and dry. Respiratory: Airway is patent Trachea midline Respiratory effort is even, unlabored, Respiratory pattern is regular, symmetrical. GI: No deficits noted. No signs and/or symptoms were reported involving the gastrointestinal system. Abdomen is round non-distended. : No deficits noted. No signs and/or symptoms were reported regarding the genitourinary system. Derm: Skin is intact, is healthy with good turgor, Skin is dry, hematoma present to right frontal forehead. Musculoskeletal: Circulation, motion, and sensation intact. Range of motion: intact in all extremities. Injury Description: Head injury sustained to forehead and right presybeterian. Historical: - Allergies: 00:46 No Known Allergies; lg3 - PMHx: 00:46 Diabetes - IDDM; Hyperlipidemia; Hypertension; lg3 - PSHx: 00:46 None; lg3 - Immunization history:: Adult Immunizations up to date. - Social history:: Smoking status: Patient denies any tobacco usage or history of. - Immunization history: Last tetanus immunization: - up to date. Screenin:51 Abuse screen: Denies threats or abuse. Nutritional screening: No deficits noted. lg3 Tuberculosis screening: No symptoms or risk factors identified. Fall Risk None identified. Primary Survey: 02:23 NO uncontrolled hemorrhage observed. Breathing/Chest: Respiratory pattern: regular, lg3 Respiratory effort: unlabored. Circulation: Pulses: palpable right radial artery, right posterior tibial artery, left radial artery and left posterior tibial artery. Disability Alert. Reassessment Airway Airway Patent Breathing/Chest Respiratory pattern Regular Respiratory effort Unlabored. 02:23 Reassessment Circulation Heart rhythm Sinus rhythm Heart tones Present Disability Alert.lg3 Vital Signs: 00:25 BP 158 / 100; Pulse 88; Resp 18; Temp 98.5; Pulse Ox 100% ; amberly 00:41 BP 158 / 100; Pulse 63; Resp 16 S; Pulse Ox 100% on R/A; Weight 92.99 kg (R); Height 5 lg3 ft. 10 in. (177.80 cm) (R); Pain 8/10; 01:00 BP 126 / 87; Pulse 86; Resp 16; Pulse Ox 100% on R/A; amberly 02:16 BP 135 / 97; Pulse 91; Resp 18; Pulse Ox 99% on R/A; amberly 00:41 Body Mass Index 29.41 (92.99 kg, 177.80 cm) lg3 Su Coma Score: 01:38 Eye Response: spontaneous(4). Verbal Response: oriented(5). Motor Response: obeys mh7 commands(6). Total: 15. 02:10 Eye Response: spontaneous(4). Verbal Response: oriented(5). Motor Response: obeys mh7 commands(6). Total: 15. 02:23 Eye Response: spontaneous(4). Verbal Response: oriented(5). Motor Response: obeys lg3 commands(6). Total: 15. Trauma Score (Adult): 02:23 Eye Response: spontaneous(1); Verbal Response: oriented(1); Motor Response: obeys lg3 commands(2); Systolic BP: > 89 mm Hg(4); Respiratory Rate: 10 to 29 per min(4); Su Score: 15; Trauma Score: 12 ED Course: 00:17 Patient arrived in ED. wm 00:27 Dianelys Means RN is Primary Nurse. lg3 00:35 Mario Wheeler MD is Attending Physician. mh7 00:45 Ct Stroke Brain Wo Cont In Process Unspecified. EDMS 00:46 Triage completed. lg3 00:46 Arm band placed on. lg3 00:51 Patient has correct armband on for positive identification. Placed in gown. Bed in low lg3 position. Call light in reach. Side rails up X2. 00:51 Inserted saline lock: 18 gauge in right antecubital area, using aseptic technique. lg3 02:23 Patient maintains SpO2 saturation greater than 95% on room air. lg3 02:26 No provider procedures requiring assistance completed. IV discontinued, intact, lg3 bleeding controlled, Pressure dressing applied. Administered Medications: 02:01 Drug: Tylenol 1000 mg Route: PO; lg3 02:04 Follow up: Response: No adverse reaction lg3 Intake: 02:23 PO: 20ml (Water); IV: 0ml; Total: 20ml. lg3 Output: 02:23 Urine: 50ml (Voided); Total: 50ml. lg3 Outcome: 02:12 Discharge ordered by . mh7 02:23 Discharged to home ambulatory, with family. lg3 02:23 Condition: good 02:23 Discharge instructions given to patient, Instructed on discharge instructions, safety practices. 02:23 Patient's length of stay was not longer than 2 hours. 03:03 Patient left the ED. lg3 Signatures: Dispatcher [employer] EDDianelys Kingston RN RN lg3 Mario Wheeler MD MD 7 Carlie Maldonado Brenda, RN RN amberly
--- NOTE | 2021-09-11 02:13 | EDPHYS ---
Physician Documentation [facility] Name: Martinez Fisher Jr Age: 46 yrs Sex: Male : 1975 Arrival Date: 09/11/2021 Time: 00:17 Bed 8 Private MD: ED Physician Mario Wheeler HPI: 09/11 01:38 This 46 yrs old Male presents to ER via Wheelchair with complaints of Head mh7 Injury Without LOC-Adult, Dizziness, Vomiting. 01:38 The patient or guardian reports injury. The complaints affect the forehead. Context of mh7 injury: The problem was sustained at home, resulted from a fall, while walking. Onset: The symptoms/episode began/occurred just prior to arrival, today. Associated signs and symptoms: Loss of consciousness: This patient did not experience any loss of consciousness. Pertinent positives: dazed, headache, nausea, vomiting, Pertinent negatives: patient denies any alcohol consumption, biting tongue, double vision, incontinence, neck pain, seizure, shortness of breath, tinnitus, weakness in extremities, generalized weakness. Severity of symptoms: At their worst the symptoms were moderate, earlier today, in the emergency department the symptoms have improved, markedly. 01:38 Patient has a history of sleepwalking. He states that he was up walking and tripped and mh7 fell hitting his head on an unknown object. Denies any LOC but was dazed. States that he had some dizziness and nausea after hitting his head. He denies any other injuries.. Historical: - Allergies: 00:46 No Known Allergies; lg3 - PMHx: 00:46 Diabetes - IDDM; Hyperlipidemia; Hypertension; lg3 - PSHx: 00:46 None; lg3 - Immunization history:: Adult Immunizations up to date. - Social history:: Smoking status: Patient denies any tobacco usage or history of. - Immunization history: Last tetanus immunization: - up to date. ROS: 01:38 Constitutional: Negative for fever, chills, and weight loss, Eyes: Negative for injury, mh7 pain, redness, and discharge, ENT: Negative for injury, pain, and discharge, Neck: Negative for injury, pain, and swelling, Cardiovascular: Negative for chest pain, palpitations, and edema, Respiratory: Negative for shortness of breath, cough, wheezing, and pleuritic chest pain, Abdomen/GI: Negative for abdominal pain, nausea, vomiting, diarrhea, and constipation, Back: Negative for injury and pain, : Negative for injury, bleeding, discharge, and swelling, MS/Extremity: Negative for injury and deformity, Skin: Negative for injury, rash, and discoloration. 01:38 Psych: Negative for depression, anxiety, suicide ideation, homicidal ideation, and hallucinations, Allergy/Immunology: Negative for hives, rash, and allergies, Endocrine: Negative for neck swelling, polydipsia, polyuria, polyphagia, and marked weight changes, Hematologic/Lymphatic: Negative for swollen nodes, abnormal bleeding, and unusual bruising. 01:38 Neuro: Negative for loss of consciousness, numbness, seizure activity, syncope, near syncope, tingling, tinnitus, tremor, visual changes, weakness. Exam: 01:38 Constitutional: This is a well developed, well nourished patient who is awake, alert, mh7 and in no acute distress. 01:38 Eyes: Pupils equal round and reactive to light, extra-ocular motions intact. Lids and lashes normal. Conjunctiva and sclera are non-icteric and not injected. Cornea within normal limits. Periorbital areas with no swelling, redness, or edema. ENT: Nares patent. No nasal discharge, no septal abnormalities noted. Tympanic membranes are normal and external auditory canals are clear. Oropharynx with no redness, swelling, or masses, exudates, or evidence of obstruction, uvula midline. Mucous membranes moist. Neck: Trachea midline, no thyromegaly or masses palpated, and no cervical lymphadenopathy. Supple, full range of motion without nuchal rigidity, or vertebral point tenderness. No Meningismus. Chest/axilla: Normal chest wall appearance and motion. Nontender with no deformity. No lesions are appreciated. Cardiovascular: Regular rate and rhythm with a normal S1 and S2. No gallops, murmurs, or rubs. Normal PMI, no JVD. No pulse deficits. Respiratory: Lungs have equal breath sounds bilaterally, clear to auscultation and percussion. No rales, rhonchi or wheezes noted. No increased work of breathing, no retractions or nasal flaring. Abdomen/GI: Soft, non-tender, with normal bowel sounds. No distension or tympany. No guarding or rebound. No evidence of tenderness throughout. Back: No spinal tenderness. No costovertebral tenderness. Full range of motion. Skin: Warm, dry with normal turgor. Normal color with no rashes, no lesions, and no evidence of cellulitis. MS/ Extremity: Pulses equal, no cyanosis. Neurovascular intact. Full, normal range of motion. 01:38 Psych: Awake, alert, with orientation to person, place and time. Behavior, mood, and affect are within normal limits. 01:38 Head/face: Noted is contusion, that is superficial, of the forehead, hematoma, that is moderate, of the forehead. 01:38 Neuro: Orientation: is normal, Mentation: is normal, Memory: is normal, Cranial nerves: grossly normal, Cerebellar function: is grossly normal, Motor: is normal, Sensation: is normal, Gait: not tested. seizure activity, is not displayed by the patient, Abnormal movements: there are no abnormal movements. Vital Signs: 00:25 BP 158 / 100; Pulse 88; Resp 18; Temp 98.5; Pulse Ox 100% ; amberly 00:41 BP 158 / 100; Pulse 63; Resp 16 S; Pulse Ox 100% on R/A; Weight 92.99 kg (R); Height 5 lg3 ft. 10 in. (177.80 cm) (R); Pain 8/10; 01:00 BP 126 / 87; Pulse 86; Resp 16; Pulse Ox 100% on R/A; amberly 02:16 BP 135 / 97; Pulse 91; Resp 18; Pulse Ox 99% on R/A; amberly 00:41 Body Mass Index 29.41 (92.99 kg, 177.80 cm) lg3 [place] Coma Score: 01:38 Eye Response: spontaneous(4). Verbal Response: oriented(5). Motor Response: obeys mh7 commands(6). Total: 15. 02:10 Eye Response: spontaneous(4). Verbal Response: oriented(5). Motor Response: obeys mh7 commands(6). Total: 15. 02:23 Eye Response: spontaneous(4). Verbal Response: oriented(5). Motor Response: obeys lg3 commands(6). Total: 15. Trauma Score (Adult): 02:23 Eye Response: spontaneous(1); Verbal Response: oriented(1); Motor Response: obeys lg3 commands(2); Systolic BP: > 89 mm Hg(4); Respiratory Rate: 10 to 29 per min(4); [place] Score: 15; Trauma Score: 12 MDM: 02:10 Differential diagnosis: Contusion of head, Hematoma on head, Intracranial bleed- mh7 Concussion without LOC. cerebral contusion. Data reviewed: vital signs, nurses notes, radiologic studies, CT scan. Data interpreted: Pulse oximetry: on room air is 100 %. Interpretation: normal. Counseling: I had a detailed discussion with the patient and/or guardian regarding: the historical points, exam findings, and any diagnostic results supporting the discharge/admit diagnosis, the presence of at least one elevated blood pressure reading (>120/80) during this emergency department visit, radiology results, the need for outpatient follow up, to return to the emergency department if symptoms worsen or persist or if there are any questions or concerns that arise at home. Response to treatment: the patient's symptoms have markedly improved after treatment. 02:12 Patient medically screened. [facility] 09/11 00:48 Order name: Glucose, Ancillary Testing; Complete Time: :22 EDSC 09/11 00:45 Order name: Ct Stroke Brain Wo Cont EDMS Administered Medications: 02:01 Drug: Tylenol 1000 mg Route: PO; lg3 02:04 Follow up: Response: No adverse reaction lg3 Disposition Summary: 09/11/21 02:12 Discharge Ordered Location: Home [facility] Problem: new 7 Symptoms: have improved mh7 Condition: Stable mh7 Diagnosis - Fall on same level, unspecified mh7 - Concussion without loss of consciousness mh7 - Contusion of unspecified part of head 7 Followup: 7 - With: Private Physician - When: 1 - 2 days - Reason: Worsening of condition, Recheck today's complaints, Continuance of care, Re-evaluation by your physician Discharge Instructions: - Discharge Summary Sheet 7 - Fall Prevention in the Home, Adult, [id number] mh7 - Concussion, Adult, [id number] mh7 - Facial or Scalp Contusion, [id number] 7 Forms: - Medication Reconciliation Form 7 - Thank You Letter mh7 - Antibiotic Education mh7 - Prescription Opioid Use 7 Signatures: Dispatcher [employer] EDSC Dianelys Means RN RN lg3 Mario Wheeler MD MD 7 Corrections: (The following items were deleted from the chart) 00:45 00:26 Head Brain Wo [id number] ordered. EDMS EDMS
[2021-09-11 03:08] VITALS: TEMP 98.5
[2021-09-11 03:12] VITALS: BP 135/97; O2SAT 99
--- NOTE | 2021-09-12 22:28 | RAD REPORT ---
EXAM DESCRIPTION: CT - Ct Stroke Brain Wo Cont - 09/11/2021 5:57 am ADDENDUM #1 Urgent finding reported to Dr. Wheeler at 09/11/2021 1:12 AM [facility] Electronically signed by: Tomer Ann 09/11/2021 1:15 AM [facility] End of Addendum EXAM DESCRIPTION: CT of the head without contrast CLINICAL HISTORY: DIZZINESS COMPARISON: None available TECHNIQUE: Axial CT of the head obtained from the skull apex to the skull base without contrast. Thi s exam was performed according to our departmental dose-optimization program, which includes automate d exposure control, adjustment of the mA and/or kV according to patient size and/or use of iterative reconstruction technique. FINDINGS: No acute intracranial hemorrhage identified. No mass, mass effect, shift of the midline, a bnormal extra-axial fluid collection or CT evidence of acute ischemic change identified. The ventricu lar system is unremarkable. No acute abnormalities of the supratentorial white matter, basal gangli a, cerebellum, or brainstem. The visualized paranasal sinuses and the mastoid air cells are relatively well aerated. No skull fr acture identified. Visualized orbits and globes are unremarkable. IMPRESSION: 1. No acute intracranial abnormality identified. Electronically signed by: Tomer Ann 09/11/2021 12:57 AM [facility] Due to temporary technical issues with the PACS/Fluency reporting system, reports are being signed by the in house radiologists without review as a courtesy to insure prompt reporting. The interpreting radiologist is fully responsible for the content of the report.
== END 2021-09-11 03:03 | disposition home or self-care (01) ==
LOC: ER 00:13
DX: S06.0X0A Concussion without loss of consciousness, initial encounter (principal); W18.30XA Fall on same level, unspecified, initial encounter; I10 Essential (primary) hypertension; E11.9 Type 2 diabetes mellitus without complications
CPT/HCPCS: 70450; 82947; 99284

== ENCOUNTER 2022-06-19 15:59 | Emergency (ER) | payer BC ==
--- OUTSIDE RECORDS SUMMARY | 2022-06-19 16:04 | XMS REPORT | Continuity of Care Document ---
:1975 Author Organization [facility] t Address [address] [place] [address] Care Team Providers Name Role Phone Joseph Hobson Attending Clinician Unavailable Payers Payer Name Policy Type Policy Number Effective Date Expiration Date S fav[place] [id number] Common [facility]ALTH[facility] Problems Condition Condition Condition Status Onset Resolution Last Treating Co mments Source Name Details Category Date Date Treatment Clinician Date [id number] longterm Problem Active Com mon (current) Spirit use of - [facility] insulin [facility] Type II Diabetes Problem Active Common diabetes mellitus Spirit mellitus type 2, - [facility] Center ons Obesity Obesity Problem Active Common [facility] Gastroesop GERD Problem Active Commo n hageal (gastroeso Spirit reflux phageal - CHI disease reflux St disease) [facility] Finding of Other Problem Active Commo n life event stressful Spi rit life - CHI events [facility] family and Medica l household Center Hypertensi Hypertensi Problem Active C ommon on on Spirit CH[facility] Severe Major Problem Active Common major depressive Spirit depression disorder, - C HI , single single St episode, episode, [facility] without severe Medical psychotic without Center features psychotic features [place] - Nonalcohol Problem Active Commo n Nonalcohol ic Spirit ic steatohepa - [facility]I steatohepa titis St titis ([place]) [facility] [id number] Insomnia, Problem Active Com mon unspecifie Spirit d type - [facility] [id number] Type 2 Problem Active Common diabetes Spirit mellitus - [facility] with [facility] chronic Medical kidney Center disease [id number] Erectile Problem Active Comm on dysfunctio Spirit n, - CHI unspecifie St d erectile [facility] dysfunctio Medica l n type Center [id number] Rotator Problem Active Common cuff Spirit syndrome - [facility] of left shoulder [facility] [id number] Adult BMI Problem Active Com mon 30.0-30.9 Spirit kg/sq m - [facility] [id number] Complete Problem Active Comm on tear of Spirit left - CHI rotator cuff, [facility] unspecifie Medica l d whether Center traumatic Reduced Attention Problem Active Commo n concentrat and Spirit ion concentrat - [facility]I ion [facility] [id number] Mixed Problem Active Common hyperlipid [facility] emia - [facility] [id number] 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 Social History Social Habit Start Date Stop Date Quantity Comments Source History of Tobacco Use Co mmon [facility] Sex Assigned At Com mon [facility] Smoking Status Start Date Stop Date Source Never Smoker Common [facility] Medications Ordered Filled Start Stop Current Ordering Indication Dosage Frequency Signature Comments Components Source Medication Medication Date Date Medication? Clinician (SIG) Name Name Jardiance Jardiance 2021- No 1{table QD Jardiance 25 MG 25 MG 02-24 0730 t} 25 MG 00:00: 00:00 00 :00 glipiZIDE glipiZIDE No 1{table BID glipiZIDE ER 2.5 MG ER 2.5 MG 5-05 t_with_ ER 2.5 MG 00:00: food} 00 metFORMIN metFORMIN No BID metFORMIN HCl ER 500 HCl ER 500 3-04 HCl ER 500 MG MG 00:00: MG 00 metFORMIN metFORMIN No BID metFORMIN HCl ER 500 HCl ER 500 3-04 HCl ER 500 MG MG 00:00: MG 00 Vardenafil Vardenafil 2020- No QD Vardenafil HCl 20 MG HCl 20 MG 2-23 HCl 20 MG 00:00: 00 Tadalafil Tadalafil 2020-1 No 1{table Tadalafil 20 MG 20 MG 0-01 t_as_ne 20 MG 00:00: eded} 00 Kenalog Kenalog 2020-0 No 40mg Common (Triamcinol (Triamcinol 3-13 S pirit one) one) 00:00: - [facility]I 00 [facility] Kenalog Kenalog 2020-0 No 40mg Common (Triamcinol (Triamcinol 3-13 S pirit one) one) 00:00: - [facility]I 00 [facility] Kenalog Kenalog 2020-0 No 40mg Common (Triamcinol (Triamcinol 3-13 S pirit one) one) 00:00: - [facility]I 00 [facility] Kenalog Kenalog 2020-0 No 40mg Common (Triamcinol (Triamcinol 3-13 S pirit one) one) 00:00: - [facility]I 00 [facility] Bupivicaine Bupivicaine 2020-0 No 5mL Common Winder Winder 1-30 Spirit 00:00: - [facility]I 00 [facility] Kenalog Kenalog 2020-0 No 1mL Common (Triamcinol (Triamcinol 1-30 S pirit one) one) 00:00: - [facility]I 00 [facility] Bupivicaine Bupivicaine 2020-0 No 5mL Common Winder Winder 1-30 Spirit 00:00: - [facility]I 00 [facility] Kenalog Kenalog 2020-0 No 1mL Common (Triamcinol (Triamcinol 1-30 S pirit one) one) 00:00: - [facility]I 00 [facility] Bupivicaine Bupivicaine 2020-0 No 5mL Common Winder Winder 1-30 Spirit 00:00: - [facility]I 00 [facility] Kenalog Kenalog 2020-0 No 1mL Common (Triamcinol (Triamcinol 1-30 S pirit one) one) 00:00: - [facility]I 00 [facility] Bupivicaine Bupivicaine 2020-0 No 5mL Common Winder Winder 1-30 Spirit 00:00: - [facility]I 00 [facility] Kenalog Kenalog 2019-0 No 1mL Common (Triamcinol (Triamcinol 1-30 S pirit one) one) 00:00: - [facility] LIDOCAINE LIDOCAINE 2018-08 No 1mL Com mon HCL 10MG/ML HCL 10MG/ML 2-19 S pirit 00:00: - [facility]I [facility] Depo-Medrol Depo-Medrol 2018-08 No 1mL Common (Methylpred (Methylpred 2-19 S pirit nisolone) nisolone) 00:00: - C HI 20mg 20mg 00 [facility] LIDOCAINE LIDOCAINE 2018-08 No 1mL Com mon HCL 10MG/ML HCL 10MG/ML 2-19 S pirit 00:00: - [facility]I [facility] Depo-Medrol Depo-Medrol 2018-08 No 1mL Common (Methylpred (Methylpred 2-19 S pirit nisolone) nisolone) 00:00: - C HI 20mg 20mg [facility] LIDOCAINE LIDOCAINE 2018-08 No 1mL Com mon HCL 10MG/ML HCL 10MG/ML 2-19 S pirit 00:00: - [facility] Depo-Medrol Depo-Medrol 2018-08 No 1mL Common (Methylpred (Methylpred 2-19 S pirit nisolone) nisolone) 00:00: - C HI 20mg 20mg [facility] LIDOCAINE LIDOCAINE 2018-08 No 1mL Com mon HCL 10MG/ML HCL 10MG/ML 2-19 S pirit 00:00: - [facility] Depo-Medrol Depo-Medrol 2018-08 No 1mL Common (Methylpred (Methylpred 2-19 S pirit nisolone) nisolone) 00:00: - C HI 20mg 20mg 00 [facility] Jardiance Jardiance Yes Mauro 1 tablet Common [facility] Lexapro Lexapro Yes Mauro 1 tablet Co [facility] Meloxicam Meloxicam Yes Mauro not Co [facility] defined [facility] Lipitor Lipitor Yes Mauro 1 tablet Co [facility] Trazodone Trazodone Yes Mauro TAKE 1 Common HCl HCl Taylor TABLET BY Spirit MOUTH - CHI EVERYDAY St AT BEDTIME [facility] Lisinopril Lisinopril Yes Mauro 1 tablet Common [facility] - [facility] Hydrocodone Hydrocodone Yes Mauro not Common -Acetaminop -Acetaminop Taylor defined Spirit hen hen - [facility] Escitalopra Escitalopra Yes Mauro TAKE 1 Common m Oxalate m Oxalate Taylor TABLET BY Spirit MOUTH - CHI EVERY DAY [facility] Jardiance Jardiance No 1{table QD Jardiance 25 MG 25 MG t} 25 MG Jardiance Jardiance No 1{table QD Jardiance 10 MG 10 MG t} 10 MG Lexapro 20 Lexapro 20 No 1{table QD Lexapro 20 MG MG t} MG Jentadueto Jentadueto No Jentadueto 2.5-1000 MG 2.5-1000 MG 2.5-1000 MG Lipitor 20 Lipitor 20 No 1{table QD Lipitor 20 MG MG t} MG Jentadueto Jentadueto No 2{table QD Jentadueto XR 2.5-1000 XR 2.5-1000 ts_with XR MG MG _a_meal 2.5-1000 } MG traZODone traZODone No 1{table QD traZODone HCl 150 MG HCl 150 MG t_at_be HCl 150 MG dtime} Lipitor 20 Lipitor 20 No 1{table QD Lipitor 20 MG MG t} MG Escitalopra Escitalopra No QD Escitalopr m Oxalate m Oxalate am Oxalate 20 MG 20 MG 20 MG Lisinopril Lisinopril No 1{table QD Lisinopril 10 MG 10 MG t} 10 MG Lisinopril Lisinopril No 1{table QD Lisinopril 10 MG 10 MG t} 10 MG Meloxicam Meloxicam No Meloxicam HYDROcodone HYDROcodone No HYDROcodon -Acetaminop -Acetaminop e-Acetamin hen hen ophen Jardiance Jardiance No 1{table QD Jardiance 25 MG 25 MG t} 25 MG HYDROcodone HYDROcodone No HYDROcodon -Acetaminop -Acetaminop e-Acetamin hen hen ophen traZODone traZODone No 1{table QD traZODone HCl 150 MG HCl 150 MG t_at_be HCl 150 MG dtime} Escitalopra Escitalopra No QD Escitalopr m Oxalate m Oxalate am Oxalate 20 MG 20 MG 20 MG Lipitor 20 Lipitor 20 No 1{table QD Lipitor 20 MG MG t} MG Jentadueto Jentadueto No 2{table QD Jentadueto XR 2.5-1000 XR 2.5-1000 ts_with XR MG MG _a_meal 2.5-1000 } MG Lipitor 20 Lipitor 20 No 1{table QD Lipitor 20 MG MG t} MG Jentadueto Jentadueto No Jentadueto 2.5-1000 MG 2.5-1000 MG 2.5-1000 MG Jardiance Jardiance No Jardiance 10 MG 10 MG 10 MG Meloxicam Meloxicam No Meloxicam Lexapro 20 Lexapro 20 No 1{table QD Lexapro 20 MG MG t} MG Lisinopril Lisinopril No 1{table QD Lisinopril 10 MG 10 MG t} 10 MG Lisinopril Lisinopril No 1{table QD Lisinopril 10 MG 10 MG t} 10 MG traZODone traZODone No traZODone HCl 100 MG HCl 100 MG HCl 100 MG Vardenafil Vardenafil No QD Vardenafil HCl 20 MG HCl 20 MG HCl 20 MG traZODone traZODone No 1{table QD traZODone HCl 150 MG HCl 150 MG t_at_be HCl 150 MG dtime} Jentadueto Jentadueto No 2{table QD Jentadueto XR 2.5-1000 XR 2.5-1000 ts_with XR MG MG _a_meal 2.5-1000 } MG Lisinopril Lisinopril No 1{table QD Lisinopril 10 MG 10 MG t} 10 MG Jentadueto Jentadueto No Jentadueto 2.5-1000 MG 2.5-1000 MG 2.5-1000 MG Meloxicam Meloxicam No Meloxicam traZODone traZODone No traZODone HCl 100 MG HCl 100 MG HCl 100 MG Lisinopril Lisinopril No 1{table QD Lisinopril 10 MG 10 MG t} 10 MG Lexapro 20 Lexapro 20 No 1{table QD Lexapro 20 MG MG t} MG Lipitor 20 Lipitor 20 No 1{table QD Lipitor 20 MG MG t} MG Lipitor 20 Lipitor 20 No 1{table QD Lipitor 20 MG MG t} MG HYDROcodone HYDROcodone No HYDROcodon -Acetaminop -Acetaminop e-Acetamin hen hen ophen Jardiance Jardiance No Jardiance 10 MG 10 MG 10 MG Jardiance Jardiance No 1{table QD Jardiance 25 MG 25 MG t} 25 MG Escitalopra Escitalopra No QD Escitalopr m Oxalate m Oxalate am Oxalate 20 MG 20 MG 20 MG Lexapro 20 Lexapro 20 No 1{table QD Lexapro 20 MG MG t} MG Lisinopril Lisinopril No 1{table QD Lisinopril 10 MG 10 MG t} 10 MG Vardenafil Vardenafil No QD Vardenafil HCl 20 MG HCl 20 MG HCl 20 MG traZODone traZODone No 1{table QD traZODone HCl 150 MG HCl 150 MG t_at_be HCl 150 MG dtime} Lipitor 20 Lipitor 20 No 1{table QD Lipitor 20 MG MG t} MG Jentadueto Jentadueto No Jentadueto 2.5-1000 MG 2.5-1000 MG 2.5-1000 MG Lipitor 20 Lipitor 20 No 1{table QD Lipitor 20 MG MG t} MG Jardiance Jardiance No Jardiance 10 MG 10 MG 10 MG HYDROcodone HYDROcodone No HYDROcodon -Acetaminop -Acetaminop e-Acetamin [facility] ophen Lisinopril Lisinopril No 1{table QD Lisinopril 10 MG 10 MG t} 10 MG Escitalopra Escitalopra No QD Escitalopr m Oxalate m Oxalate am Oxalate 20 MG 20 MG 20 MG Meloxicam Meloxicam No Meloxicam traZODone traZODone No traZODone HCl 100 MG HCl 100 MG HCl 100 MG Jardiance Jardiance No Jardiance 10 MG 10 MG 10 MG traZODone traZODone No traZODone HCl 100 MG HCl 100 MG HCl 100 MG Vardenafil Vardenafil No QD Vardenafil HCl 20 MG HCl 20 MG HCl 20 MG Lipitor 20 Lipitor 20 No 1{table QD Lipitor 20 MG MG t} MG Lisinopril Lisinopril No 1{table QD Lisinopril 10 MG 10 MG t} 10 MG Lipitor 20 Lipitor 20 No 1{table QD Lipitor 20 MG MG t} MG glipiZIDE glipiZIDE No 1{table BID glipiZIDE ER 2.5 MG ER 2.5 MG t_with_ ER 2.5 MG food} glipiZIDE glipiZIDE No 1{table BID glipiZIDE ER 5 MG ER 5 MG t_with_ ER 5 MG food} HYDROcodone HYDROcodone No HYDROcodon -Acetaminop -Acetaminop e-Acetamin hen hen ophen Escitalopra Escitalopra No QD Escitalopr m Oxalate m Oxalate am Oxalate 20 MG 20 MG 20 MG Lisinopril Lisinopril No 1{table QD Lisinopril 10 MG 10 MG t} 10 MG Lexapro 20 Lexapro 20 No 1{table QD Lexapro 20 MG MG t} MG Meloxicam Meloxicam No Meloxicam metFORMIN metFORMIN No metFORMIN HCl ER 500 HCl ER 500 HCl ER 500 MG MG MG traZODone traZODone No 1{table QD traZODone HCl 150 MG HCl 150 MG t_at_be HCl 150 MG dtime} Jentadueto Jentadueto No Jentadueto 2.5-1000 MG 2.5-1000 MG 2.5-1000 MG Lisinopril Lisinopril No 1{table QD Lisinopril 10 MG 10 MG t} 10 MG Lexapro 20 Lexapro 20 No 1{table QD Lexapro 20 MG MG t} MG Escitalopra Escitalopra No QD Escitalopr m Oxalate m Oxalate am Oxalate 20 MG 20 MG 20 MG metFORMIN metFORMIN No metFORMIN HCl ER 500 HCl ER 500 HCl ER 500 MG MG MG Lipitor 20 Lipitor 20 No 1{table QD Lipitor 20 MG MG t} MG HYDROcodone HYDROcodone No HYDROcodon -Acetaminop -Acetaminop e-Acetamin hen hen ophen traZODone traZODone No 1{table QD traZODone HCl 150 MG HCl 150 MG t_at_be HCl 150 MG dtime} metFORMIN metFORMIN No BID metFORMIN HCl ER 500 HCl ER 500 HCl ER 500 MG MG MG Meloxicam Meloxicam No Meloxicam glipiZIDE glipiZIDE No 1{table BID glipiZIDE ER 5 MG ER 5 MG t_with_ ER 5 MG food} Jentadueto Jentadueto No Jentadueto 2.5-1000 MG 2.5-1000 MG 2.5-1000 MG glipiZIDE glipiZIDE No 1{table BID glipiZIDE ER 5 MG ER 5 MG t_with_ ER 5 MG food} Jardiance Jardiance No Jardiance 10 MG 10 MG 10 MG Lipitor 20 Lipitor 20 No 1{table QD Lipitor 20 MG MG t} MG Lisinopril Lisinopril No 1{table QD Lisinopril 10 MG 10 MG t} 10 MG Vardenafil Vardenafil No QD Vardenafil HCl 20 MG HCl 20 MG HCl 20 MG glipiZIDE glipiZIDE No 1{table BID glipiZIDE ER 2.5 MG ER 2.5 MG t_with_ ER 2.5 MG food} traZODone traZODone No traZODone HCl 100 MG HCl 100 MG HCl 100 MG Lisinopril Lisinopril No 1{table QD Lisinopril 10 MG 10 MG t} 10 MG Meloxicam Meloxicam No Meloxicam Jentadueto Jentadueto No Jentadueto 2.5-1000 MG 2.5-1000 MG 2.5-1000 MG HYDROcodone HYDROcodone No HYDROcodon -Acetaminop -Acetaminop e-Acetamin hen hen ophen traZODone traZODone No 1{table QD traZODone HCl 100 MG HCl 100 MG t_at_be HCl 100 MG dtime} Lisinopril Lisinopril No 1{table QD Lisinopril 10 MG 10 MG t} 10 MG Escitalopra Escitalopra No QD Escitalopr m Oxalate m Oxalate am Oxalate 20 MG 20 MG 20 MG Jentadueto Jentadueto No 2{table QD Jentadueto XR 2.5-1000 XR 2.5-1000 ts_with XR MG MG _a_meal 2.5-1000 } MG Lexapro 20 Lexapro 20 No 1{table QD Lexapro 20 MG MG t} MG Lipitor 20 Lipitor 20 No 1{table QD Lipitor 20 MG MG t} MG Lipitor 20 Lipitor 20 No 1{table QD Lipitor 20 MG MG t} MG Jardiance Jardiance No 1{table QD Jardiance 25 MG 25 MG t} 25 MG Immunizations Ordered Immunization Filled Immunization Date Status Commen ts Source Name Name Sintia Patricio 2021-07-27 Completed [facility] 08:36:00 [facility] Sintia Patricio 2021-07-27 Completed [facility] 08:36:00 [facility] Sintia Patricio 2021-07-27 Completed [facility] 08:36:00 - [facility] Sintia Patricio 2021-07-27 Completed [facility] 08:36:00 - [facility] Sintia Patricio 2021-07-27 Completed [facility] 08:36:00 [facility] Willie Tapia 2019-11-08 Completed [facility] (Triamcinolone) (Triamcinolone) 11:10:00 [facility] [place] Vallada[place]alog 2019-11-08 Completed [facility] (Triamcinolone) (Triamcinolone) 11:10:00 [facility] Bupivicaine Winder Bupivicaine Winder 2019-09-26 Completed [facility] 15:32:00 [facility] Bupivicaine Winder Bupivicaine Winder 2019-09-26 Completed [facility] 15:32:00 [facility] Blainealog Blainealog 2019-09-26 Completed [facility] (Triamcinolone) (Triamcinolone) 15:31:00 [facility] Kenalog Kenalog 2019-09-26 Completed [facility] (Triamcinolone) (Triamcinolone) 15:31:00 [facility] LIDOCAINE HCL LIDOCAINE HCL 2019-08-15 Completed Common S pirit 10MG/ML 10MG/ML 15:36:00 [facility] LIDOCAINE HCL LIDOCAINE HCL 2019-08-15 Completed Common S pirit 10MG/ML 10MG/ML 15:36:00 [facility] Depo-Medrol Depo-Medrol 2019-08-15 Completed Common Spiri t (Methylprednisolone) (Methylprednisolone) 15:34:00 [facility] 20mg 20mg [facility] Depo-Medrol Depo-Medrol 2019-08-15 Completed Common Spiri t (Methylprednisolone) (Methylprednisolone) 15:34:00 - [facility] 20mg 20mg [facility] Vital Signs Vital Name Observation Time Observation Value Comments Source height 2022-02-24 09:30:00 70 [in_i] [facility] weight 2022-02-24 09:30:00 209.2 [lb_av] [facility] temperature 2022-02-24 09:30:00 97.9 [degF] [facility] bmi 2022-02-24 09:30:00 30.01 kg/m2 [facility] oximetry 2022-02-24 09:30:00 98 % [facility] respiratory rate 2022-02-24 09:30:00 18 /min Comm on [facility] blood pressure 2022-02-24 09:30:00 135 mm[Hg] [facility] - systolic [facility] blood pressure 2022-02-24 09:30:00 78 mm[Hg] Common [facility] diastolic [facility] height 2022-01-27 08:40:00 70 [in_i] [facility] weight 2022-01-27 08:40:00 206.6 [lb_av] [facility] temperature 2022-01-27 08:40:00 97.5 [degF] [facility] bmi 2022-01-27 08:40:00 29.64 kg/m2 [facility] oximetry 2022-01-27 08:40:00 98 % [facility] respiratory rate 2022-01-27 08:40:00 18 /min Comm on [facility] blood pressure 2022-01-27 08:40:00 134 mm[Hg] Common [facility] - systolic [facility] blood pressure 2022-01-27 08:40:00 76 mm[Hg] Common [facility] - diastolic [facility] height 2021-12-30 08:40:00 70 [in_i] Common S pirit [facility] weight 2021-12-30 08:40:00 198.3 [lb_av] Common [facility] temperature 2021-12-30 08:40:00 97.9 [degF] Common S [facility] bmi 2021-12-30 08:40:00 28.45 kg/m2 Common S [facility] oximetry 2021-12-30 08:40:00 96 % Common S [facility] respiratory rate 2021-12-30 08:40:00 17 /min Comm on [facility] blood pressure 2021-12-30 08:40:00 118 mm[Hg] Common [facility] - systolic [facility] blood pressure 2021-12-30 08:40:00 74 mm[Hg] Common [facility] - diastolic [facility] height 2021-08-19 08:30:00 70 [in_i] Common [facility] weight 2021-08-19 08:30:00 211.6 [lb_av] [facility] temperature 2021-08-19 08:30:00 97.3 [degF] Common [facility] bmi 2021-08-19 08:30:00 30.36 kg/m2 [facility] oximetry 2021-08-19 08:30:00 97 % [facility] respiratory rate 2021-08-19 08:30:00 17 /min Comm on [facility] blood pressure 2021-08-19 08:30:00 127 mm[Hg] [facility] - systolic [facility] blood pressure 2021-08-19 08:30:00 82 mm[Hg] [facility] - diastolic [facility] height 2021-05-28 09:20:00 70 [in_i] Common [facility] weight 2021-05-28 09:20:00 212 [lb_av] Common [facility] temperature 2021-05-28 09:20:00 98 [degF] Common [facility] bmi 2021-05-28 09:20:00 30.42 kg/m2 Common S pirit [facility] blood pressure 2021-05-28 09:20:00 131 mm[Hg] Common [facility] - systolic [facility] blood pressure 2021-05-28 09:20:00 70 mm[Hg] Common [facility] - diastolic [facility] height 2021-02-24 11:10:00 70 [in_i] Common [facility] weight 2021-02-24 11:10:00 210.5 [lb_av] [facility] temperature 2021-02-24 11:10:00 97.5 [degF] [facility] bmi 2021-02-24 11:10:00 30.2 kg/m2 [facility] oximetry 2021-02-24 11:10:00 96 % [facility] respiratory rate 2021-02-24 11:10:00 17 /min Comm on [facility] blood pressure 2021-02-24 11:10:00 138 mm[Hg] [facility] systolic [facility] blood pressure 2021-02-24 11:10:00 78 mm[Hg] [facility] diastolic [facility] Procedures This patient has no known procedures. Encounters Start End Encounter Admission Attending Care Care Encounter Source Date/Time Date/Time Type Type Clinicians Facility Department ID 2022-01-26 Outpatient Hobson, [facility]LML[facility] [id number] Common 09:57:01 Joseph [facility] 2021-12-27 Outpatient Hobson, [facility] [id number] Common 15:19:00 Joseph [facility] 2021-11-17 Outpatient Hobson, STLMLC [facility] [id number] Common 10:17:01 Joseph [facility] 2021-11-15 Outpatient Hobson, [facility] [id number] Common 13:26:00 Joseph [facility] 2021-10-21 Outpatient Hobson, STLMLC [facility] [id number] Common 13:01:00 Joseph [facility] 2021-09-22 Outpatient Hobson, STLMLC [facility] [id number] Common 14:28:05 Joseph [facility] 2021-09-22 Outpatient Hobson, STLMLC [facility] [id number] Common 13:20:54 Joseph [id number] [facility] 2021-09-22 Outpatient Hobson, STLMLC [facility] [id number] Common 12:53:47 Joseph [facility] 2021-09-22 Outpatient Hobson, STLMLC [facility] [id number] Common 12:53:35 Joseph [id number] [facility] 2021-09-22 Outpatient Hobson, STLMLC [facility] [id number] Common 11:40:24 Joseph [id number] [facility] 2021-09-22 Outpatient Hobson, STLMLC [facility] [id number] Common 11:16:42 Joseph [id number] [facility] 2021-09-22 Outpatient Hobson, STLMLC [facility] [id number] Common 11:16:29 Joseph [facility] 2021-09-22 Outpatient Hobson, STLMLC [facility] [id number] Common 11:07:24 Joseph [id number] [facility] 2021-09-22 Outpatient Hobson, STLMLC [facility] [id number] Common 11:06:57 Joseph [id number] [facility] 2021-09-22 Outpatient Hobson, STLMLC [facility] [id number] Common 11:04:30 Joseph [id number] [facility] 2021-09-22 Outpatient Hobson, STLMLC [facility] [id number] Common 11:03:31 Joseph [facility] 2022-02-24 2022-02-24 OFFICE STLMLC ST[facility] [id number] Co mmon 00:00:00 00:00:00 VISIT [facility] ESTAB PT - CHI LEVEL 4 [facility] 2022-01-27 2022-01-27 (ESTPT) STLMLC ST[facility] [id number] Co mmon 00:00:00 00:00:00 Isha jacobsen Patient - CH[facility] 2021-12-30 2021-12-30 OFFICE STLMLC STL[facility] [id number] Co mmon 00:00:00 00:00:00 VISIT [facility] ESTAB PT - [facility] LEVEL 4 [facility] 2021-10-29 2021-10-29 (TEL) STLMLC STLMLC [id number] Co mmon 00:00:00 00:00:00 [facility] 2021-08-19 2021-08-19 OFFICE STLMLC STLMLC [id number] Co mmon 00:00:00 00:00:00 VISIT Spirit ESTAB PT - [facility]I LEVEL 4 [facility] 2021-05-28 2021-05-28 OFFICE STLMLC STL[facility] [id number] Co mmon 00:00:00 00:00:00 VISIT Spirit ESTAB PT - [facility]I LEVEL 4 [facility] 2021-02-24 2021-02-24 PREV VISIT STLMLC STLMLC [id number] Common 00:00:00 00:00:00 EST AGE Lele 40-64 - CHI [facility] 2020-12-17 2020-12-17 Outpatient STLMLC [facility] [id number] Common 00:00:00 00:00:00 [facility] 2020-12-15 2020-12-15 Outpatient STLMLC ST[facility] [id number] Common 00:00:00 00:00:00 Spirit [facility] 2020-03-12 2020-03-12 [facility] [id number] Common 13:00:00 13:00:00 [facility] - [facility] 2020-02-11 2020-02-11 [facility] [id number] Common 13:00:00 13:00:00 t [facility] Joint - [facility] Clinic of [facility] of [facility] 2020-01-28 2020-01-28 [id number] Common 11:53:00 11:53:00 t [facility] t [facility] - [facility] 2020-01-27 2020-01-27 [id number] Common 15:30:00 15:30:00 t Bone Bone and Spiri t and Joint Joint - [facility] 2020-01-13 2020-01-13 [id number] Common 09:17:00 09:17:00 t Bone Bone and Spiri t and Joint [facility] 2020-01-08 2020-01-08 [id number] Common 16:47:00 16:47:[address] [facility] 2020-01-08 2020-01-08 [id number] Common 16:30:00 16:30:[address] [facility] 2020-01-06 2020-01-06 [id number] Common 13:31:00 13:31:00 t Bone Bone and Spiri t and Joint [facility] 2020-01-06 2020-01-06 [id number] Common 09:00:00 09:00:00 t Bone Bone and Spiri t and Joint Joint - [facility] 2019-12-30 2019-12-30 [id number] Common 10:30:00 10:30:00 t Bone Bone and Spiri t and Joint Joint - [facility] 2019-12-27 2019-12-27 [id number] Common 09:32:00 09:32:00 t Bone Bone and Spiri t and Joint Joint - [facility] 2019-12-23 2019-12-23 [id number] Common 10:19:00 10:19:00 t Bone Bone and Spiri t and Joint [facility] 2019-12-04 2019-12-04 [id number] Common 14:00:00 14:00:00 t Bone Bone and Spiri t and Joint Joint - [facility] 2019-12-02 2019-12-02 [facility] [id number] Common 09:00:00 09:00:[address] [facility] 2019-11-27 2019-11-27 [id number] Common 16:30:00 16:30:[address] [facility] 2019-11-25 2019-11-25 [id number] Common 16:07:00 16:07:[address] [facility] 2019-11-08 2019-11-08 [id number] Common 10:45:00 10:45:[address] [facility] 2019-10-17 2019-10-17 [id number] Common 09:18:00 09:18:[address] [facility] 2019-10-10 2019-10-10 [id number] Common 15:50:00 15:50:[address] [facility] 2019-10-10 2019-10-10 [id number] Common 15:30:00 15:30:[address] [facility] 2019-09-26 2019-09-26 [id number] Common 15:15:00 15:15:00 t Bone Bone and Spiri t and Joint [facility] 2019-08-15 2019-08-15 Outpatient Tia [facility] [id number] Common 15:00:00 15:00:00 t Bone Bone and Spiri t and Joint [facility] 2019-08-01 2019-08-01 Outpatient Tia Webert [id number] Common 15:15:00 15:15:[address] [employer] [address] [facility] Family Medicine [facility] Results Test Description Test Time Test Comments Results Result Comments Source HEMOGLOBIN A1C 2022-01-27 00:00:00 Test Item Value Reference Range Interpretation Comme nts A1C (test code = 4548-4) 10.9 HEMOGLOBIN [id number] 00:00:00 Test Item Value Reference Range Interpretation Comments A1C (test code = 4548-4) 11.2
--- NOTE | 2022-06-19 17:38 | RAD REPORT ---
EXAM DESCRIPTION: RAD - Ankle Left 3 View - 06/19/2022 5:29 pm CLINICAL HISTORY: fall, ankle injury COMPARISON: No comparisons FINDINGS/IMPRESSION: No acute fracture. No malalignment. No significant focal degenerative changes.
--- NOTE | 2022-06-19 18:07 | EDPHYS ---
Physician Documentation [facility] Name: Martinez Fisher Jr Age: 47 yrs Sex: Male : 1975 Arrival Date: 06/19/2022 Time: 16:02 Bed 24 Private MD: Joce [facility] ED Physician Elmer Fisher HPI: 06/19 16:11 This 47 yrs old Male presents to ER via Wheelchair with complaints of Ankle jmm Injury. 16:11 The patient presents with an injury, pain. Onset: The symptoms/episode began/occurred jm acutely, 3 hour(s) ago. Historical: - Allergies: 16:15 No Known Allergies; kb3 - Home Meds: 16:15 atorvastatin 10 mg oral tab [Active]; lisinopril 10 mg Oral tab 1 tab once daily kb3 [Active]; metformin 1,000 mg Oral tab 1 tab 2 times per day [Active]; Jardiance 10 mg oral tab 1 tab once daily [Active]; - PMHx: 16:15 Hyperlipidemia; Hypertension; Diabetes mellitus; kb3 - PSHx: 16:15 None; kb3 - Immunization history:: Adult Immunizations up to date, Client reports receiving the 2nd dose of the Covid vaccine, Last tetanus immunization: up to date. - Social history:: Smoking status: Patient denies any tobacco usage or history of. Vital Signs: 16:13 BP 144 / 78; Pulse 89; Resp 20; Temp 98.4; Pulse Ox 100% ; Weight 95.25 kg; Height 5 kb3 ft. 9 in. (175.26 cm); Pain 7/10; 17:00 BP 117 / 79; Pulse 79; Resp 18; Pulse Ox 99% ; kb3 18:16 BP 129 / 74; Pulse 81; Resp 20; Pulse Ox 97% ; kb3 16:13 Body Mass Index 31.01 (95.25 kg, 175.26 cm) kb3 MDM: 16:11 Patient medically screened. [facility] 18:06 Data reviewed: vital signs, nurses notes. Counseling: I had a detailed discussion with eri the patient and/or guardian regarding: the historical points, exam findings, and any diagnostic results supporting the discharge/admit diagnosis, the need for outpatient follow up, to return to the emergency department if symptoms worsen or persist or if there are any questions or concerns that arise at home. 06/19 16:12 Order name: Ankle Left 3 View XRAY; Complete Time: 17:41 jm 06/19 16:12 Order name: Foot Left 3 View XRAY; Complete Time: 17:41 jm 06/19 17:41 Order name: Jason wrap-joint; Complete Time: 17:54 jmm Administered Medications: No medications were administered Disposition: 18:54 Co-signature as Attending Physician, Elmer Fisher MD. rn Disposition Summary: 06/19/22 18:06 Discharge Ordered Location: Home [facility] Condition: Stable jm Diagnosis - Sprain of ankle jmm Followup: m - With: Mauro Taylor MD - When: 2 - 3 days - Reason: Recheck today's complaints, Continuance of care, Re-evaluation by your physician Discharge Instructions: - Discharge Summary Sheet jm - Ankle Sprain jm Forms: - Medication Reconciliation Form jmm - Thank You Letter jmm - Antibiotic Education jmm - Prescription Opioid Use jm - Work release form hb Prescriptions: - Diclofenac Sodium 75 mg Oral Tablet Sustained Release - take 1 tablet by ORAL route 2 times per day; 30 tablet; Refills: 0, Product jmm Selection Permitted Signatures: Dispatcher [employer] EDMS Bimal Youssef PA PA anm Elmer Fisher MD MD rn Bradberry, Kelly, RN RN kb3 Corrections: (The following items were deleted from the chart) 16:17 16:15 Home Meds: atorvastatin 10 mg oral tab 1 tab once daily; kb3 kb3 16:17 16:15 PMHx: Diabetes - IDDM; kb3 kb3
--- NOTE | 2022-06-19 18:07 | ER ---
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 Pt placed ice to injury and took ibuprofen. Reports pain to left lateral ankle and foot. Coronavirus screen: Vaccine status: Patient reports receiving the 2nd dose of the covid vaccine. Client denies travel out of the [place] in the last 14 days. Ebola Screen: Patient negative for fever greater than or equal to 101.5 degrees Fahrenheit, and additional compatible Ebola Virus Disease symptoms Patient denies exposure to infectious person. Patient denies travel to an Ebola-affected area in the 21 days before illness onset. No symptoms or risks identified at this time. Initial Sepsis Screen: Does the patient meet any 2 criteria? No. Patient's initial sepsis screen is negative. Does the patient have a suspected source of infection? No. Patient's initial sepsis screen is negative. Risk Assessment: Do you want to hurt yourself or someone else? Patient reports no desire to harm self or others. Onset of symptoms was June 19, 2022 at 13:00. 16:13 Method Of Arrival: Wheelchair kb3 16:13 Acuity: ANA LUISA 4 kb3 Triage Assessment: 16:15 General: Appears in no apparent distress. Behavior is calm, cooperative. Pain: kb3 Complains of pain in lateral side of left foot, lateral side of left heel, left Achilles and left lateral malleolus Pain does not radiate. Pain currently is 7 out of 10 on a pain scale. Quality of pain is described as throbbing. Musculoskeletal: Reports pain in lateral side of left foot, lateral side of left heel, left Achilles and left lateral malleolus. Historical: - Allergies: 16:15 No Known Allergies; kb3 - Home Meds: 16:15 atorvastatin 10 mg oral tab [Active]; lisinopril 10 mg Oral tab 1 tab once daily kb3 [Active]; metformin 1,000 mg Oral tab 1 tab 2 times per day [Active]; Jardiance 10 mg oral tab 1 tab once daily [Active]; - PMHx: 16:15 Hyperlipidemia; Hypertension; Diabetes mellitus; kb3 - PSHx: 16:15 None; kb3 - Immunization history:: Adult Immunizations up to date, Client reports receiving the 2nd dose of the Covid vaccine, Last tetanus immunization: up to date. - Social history:: Smoking status: Patient denies any tobacco usage or history of. Screenin:18 Abuse screen: Denies threats or abuse. Denies injuries from another. Nutritional kb3 screening: No deficits noted. Tuberculosis screening: No symptoms or risk factors identified. Fall Risk None identified. Assessment: 16:18 General: See triage note. kb3 Vital Signs: 16:13 BP 144 / 78; Pulse 89; Resp 20; Temp 98.4; Pulse Ox 100% ; Weight 95.25 kg; Height 5 kb3 ft. 9 in. (175.26 cm); Pain 7/10; 17:00 BP 117 / 79; Pulse 79; Resp 18; Pulse Ox 99% ; kb3 18:16 BP 129 / 74; Pulse 81; Resp 20; Pulse Ox 97% ; kb3 16:13 Body Mass Index 31.01 (95.25 kg, 175.26 cm) kb3 ED Course: 16:02 Patient arrived in ED. am2 16:02 Joseph Hobson DO is Private Physician. am2 16:05 Bimal Youssef PA is PHCP. jmm 16:05 Elmer Fisher MD is Attending Physician. jmm 16:13 April Murphy, RN is Primary Nurse. kb3 16:15 Triage completed. kb3 16:15 Arm band placed on right wrist. kb3 16:18 Allergy band placed. Bed in low position. Call light in reach. kb3 16:18 No provider procedures requiring assistance completed. Patient did not have IV access kb3 during this emergency room visit. 17:30 Ankle Left 3 View XRAY In Process Unspecified. EDMS 17:30 Foot Left 3 View XRAY In Process Unspecified. EDMS 18:06 Mauro Taylor MD is Referral Physician. jmm Administered Medications: No medications were administered Medication: 16:18 VIS not applicable for this client. kb3 Outcome: 18:06 Discharge ordered by . jmm 18:17 Discharged to home ambulatory. kb3 18:17 Condition: stable 18:17 Discharge instructions given to patient, Instructed on discharge instructions, follow up and referral plans. medication usage, Demonstrated understanding of instructions, follow-up care, medications, Prescriptions given X 1. 18:17 Patient left the ED. 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
[2022-06-19 18:50] VITALS: TEMP 98.4
[2022-06-19 18:52] VITALS: BP 129/74; O2SAT 97
== END 2022-06-19 18:17 | disposition home or self-care (01) ==
LOC: ER 15:59
DX: S93.402A Sprain of unspecified ligament of left ankle, initial encounter (principal); I10 Essential (primary) hypertension; E11.9 Type 2 diabetes mellitus without complications
CPT/HCPCS: 99283